=== PATIENT | female | born 1945 | race Caucasian/White ===

== ENCOUNTER 2022-03-25 13:02 | Outpatient (CLI) | payer OTHER, SELFPAY ==
[2022-03-25 17:18] LABS: Albumin* 3.9 g/dL (3.3-5.0); Chloride* 102 mmol/L (96-114); Potassium* 4.9 mmol/L (3.6-5.1); Sodium* 134 mmol/L (135-149)
[2022-03-25 17:21] LABS: Alanine Aminotransferase* 13 U/L (4-35); Alkaline Phosphatase* 108 U/L (40-150); Aspartate Amino Transferase* 23 U/L (12-35); Bilirubin Total* 0.8 mg/dL (0.1-1.5); Blood Urea Nitrogen* 22 mg/dL (7-30); Calcium* 9.3 mg/dL (8.4-10.6); Carbon Dioxide* 26 mmol/L (20-32); Creatinine* 1.3 mg/dL (0.5-1.5); Estimated Glomerular Filt Rate 42 ml/min; Glucose* 116 mg/dL (60-115); Total Protein* 7.4 g/dL (6.0-8.3)
[2022-03-25 17:31] LABS: NT Pro B Type NatriureticPept* 763 PG/mL (0-450)
== END 2022-03-25 13:03 | disposition home or self-care (01) ==
PROVIDERS: PCP Internal Medicine; Visit Provider Student in an Organized Health Care Education/Training Program
DX: R60.0 Localized edema (principal); R06.02 Shortness of breath
CPT/HCPCS: 80053; 83880

== ENCOUNTER 2022-04-28 10:00 | Outpatient (CLI) | payer OTHER, SELFPAY ==
[2022-04-28 15:31] LABS: Chloride* 98 mmol/L (96-114); Sodium* 131 mmol/L (135-149)
[2022-04-28 15:34] LABS: Carbon Dioxide* 24 mmol/L (20-32); Creatinine* 1.5 mg/dL (0.5-1.5); Estimated Glomerular Filt Rate 36 ml/min
[2022-04-28 15:35] LABS: Blood Urea Nitrogen* 24 mg/dL (7-30); Calcium* 9.4 mg/dL (8.4-10.6); Glucose* 163 mg/dL (60-115)
== END 2022-04-28 10:01 | disposition home or self-care (01) ==
LOC: NFLDREF 10:01
PROVIDERS: PCP Internal Medicine; Visit Provider Internal Medicine
DX: R06.09 Other forms of dyspnea (principal); E11.9 Type 2 diabetes mellitus without complications; I10 Essential (primary) hypertension; N18.2 Chronic kidney disease, stage 2 (mild)
CPT/HCPCS: 80048

== ENCOUNTER 2022-05-06 11:09 | Outpatient (CLI) | payer OTHER, SELFPAY ==
--- NOTE | 2022-05-06 11:30 | CRLHL7_ITS ---
For Patients: As a result of the Century Cures Act, medical imaging exams and procedure reports are released immediately into your electronic medical record. You may view this report before your referring provider. If you have questions, please contact your health care provider. BILATERAL SCREENING MAMMOGRAM WITH COMPUTER-AIDED DETECTION TECHNIQUE: CC and MLO views were obtained. These mammographic images have been obtained using full-field digital technique. These mammographic images were interpreted with the benefit of computer-aided detection. COMPARISON FILM: 01/04/21, 12/17/19, 09/10/18. FINDINGS: There are scattered areas of fibroglandular density IMPRESSION: There is no radiographic evidence for malignancy. ASSESSMENT: BI-RADS Category 2: Benign RECOMMENDATION: Routine screening mammogram in 1 year. A lay language report of this examination will be provided to the patient. Geovanny Brady M.D. Diagnostic Radiologist [email or web address] KIERAN/Dictated by: Geovanny Brady MD @ 05/09/2022 9:18:00 AM (Electronically Signed)
== END 2022-05-06 11:10 | disposition home or self-care (01) ==
LOC: MAMMO 11:10
PROVIDERS: PCP Internal Medicine; Visit Provider Internal Medicine
DX: Z12.31 Encounter for screening mammogram for malignant neoplasm of breast (principal)
CPT/HCPCS: 77067

== ENCOUNTER 2022-09-09 09:08 | Outpatient (CLI) | payer OTHER, SELFPAY ==
[2022-09-09 10:00] LABS: Albumin* 3.9 g/dL (3.3-5.0); Chloride* 102 mmol/L (96-114)
[2022-09-09 10:01] LABS: Potassium* 3.7 mmol/L (3.6-5.1); Sodium* 136 mmol/L (135-149)
[2022-09-09 10:03] LABS: Alkaline Phosphatase* 91 U/L (40-150); Aspartate Amino Transferase* 23 U/L (12-35); Bilirubin Total* 0.9 mg/dL (0.1-1.5); Blood Urea Nitrogen* 23 mg/dL (7-30); Carbon Dioxide* 28 mmol/L (20-32); Cholesterol* 149 mg/dL (90-199); Creatinine* 1.6 mg/dL (0.5-1.5); Estimated Glomerular Filt Rate 33 ml/min; Glucose* 135 mg/dL (60-115)
[2022-09-09 10:04] LABS: Alanine Aminotransferase* 17 U/L (4-35); Calcium* 9.1 mg/dL (8.4-10.6); HDL Cholesterol* 49 mg/dL (>=50); LDL Cholesterol Calculated 56 mg/dL (<100); Triglycerides* 218 mg/dL (40-149)
[2022-09-09 10:15] LABS: Creatinine Urine 180.7 mg/dL
[2022-09-09 10:19] LABS: Microalbumin Creatinine Ratio 10 mg/g (0-30); Microalbumin Urine 2 mg/dL
== END 2022-09-09 09:09 | disposition home or self-care (01) ==
LOC: NFLDLAB 09:09
PROVIDERS: PCP Internal Medicine; Visit Provider Internal Medicine
DX: E78.5 Hyperlipidemia, unspecified (principal); E11.9 Type 2 diabetes mellitus without complications; I10 Essential (primary) hypertension; N18.9 Chronic kidney disease, unspecified; E66.01 Morbid (severe) obesity due to excess calories; N18.30 Chronic kidney disease, stage 3 unspecified; Z79.01 Long term (current) use of anticoagulants
CPT/HCPCS: 36415; 80053; 80061; 82043; 82570

== ENCOUNTER 2023-05-15 09:24 | Outpatient (CLI) | payer OTHER, SELFPAY ==
--- NOTE | 2023-05-15 09:45 | CRLHL7_ITS ---
For Patients: As a result of the Century Cures Act, medical imaging exams and procedure reports are released immediately into your electronic medical record. You may view this report before your referring provider. If you have questions, please contact your health care provider. BILATERAL SCREENING MAMMOGRAM WITH COMPUTER-AIDED DETECTION TECHNIQUE: CC and MLO views were obtained. These mammographic images have been obtained using full-field digital technique. These mammographic images were interpreted with the benefit of computer-aided detection. COMPARISON FILM: 05/06/22, 01/04/21, 12/17/19. FINDINGS: There are scattered areas of fibroglandular density IMPRESSION: There is no radiographic evidence for malignancy. ASSESSMENT: BI-RADS Category 2: Benign RECOMMENDATION: Routine screening mammogram in 1 year. A lay language report of this examination will be provided to the patient. BALJINDER TORRES M.D. Diagnostic/Nuclear Medicine Radiologist [email or web address] HEIDI:ani Transcribed: 2:48 p.mDemetria law/Dictated by: Baljinder Torres MD @ 05/16/2023 9:14:00 AM (Electronically Signed)
== END 2023-05-15 09:25 | disposition home or self-care (01) ==
LOC: MAMMO 09:25
PROVIDERS: PCP Internal Medicine; Visit Provider Internal Medicine
DX: Z12.31 Encounter for screening mammogram for malignant neoplasm of breast (principal)
CPT/HCPCS: 77063; 77067

== ENCOUNTER 2023-06-15 09:25 | Outpatient (CLI) | payer OTHER, SELFPAY | END 2023-06-15 09:26 | disposition home or self-care (01) | LOC: NFLDREF 06-23 05:42 | PROVIDERS: PCP Internal Medicine; Referring Provider Internal Medicine; Visit Provider Internal Medicine | DX: E11.9 Type 2 diabetes mellitus without complications (principal); Z79.01 Long term (current) use of anticoagulants; Z95.2 Presence of prosthetic heart valve | CPT/HCPCS: 80053; 82043; 82570 ==

== ENCOUNTER 2023-09-12 09:25 | Outpatient (CLI) | payer OTHER, SELFPAY ==
--- OUTSIDE RECORDS SUMMARY | 2023-09-13 06:12 | XMS_ITS | Encounter Summary ---
Author Name Unknown Organization [facility] Address [address] [place] [address] Care Team Providers Care Roundhouse Worker Name Role Phone Elsewhere, Pcp Primary Care Provider Unavailabl e Reason for Visit * Reason Comments Med Refill Encounter Details Date Type Department Care Team (Late st Contact Info) Description 06/27/2023 Refill Department of Family Medicine, [facility], in [place], [place] [address] [place] [phone] Gilberto Law M.D. [address] [place] [phone] Med Refill Social History Tobacco Use Types Packs/Day Years Used Date Smoking Tobacco: Former Cigarettes 0 Q uit: 1998 Smokeless Tobacco: Never Alcohol Use Standard Drinks/Week Comments Yes 1 (1 standard drink = 0.6 oz pur e alcohol) Occasioanl Nutrition Answer Date Recorded Nutrition: EVOO Fat Source Unknown 09/22 Nutrition: Servings of Fruits/Vegetables per Day Not on file 09/22/2020 Dental Answer Date Recorded Dental: Regular Dentist Unknown 09/22/19 Sex and Gender Information Value Date Recorded Sex Assigned at Not on file Gender Identity Not on file Sexual Orientation Not on file documented as of this encounter Plan of Treatment Not on file documented as of this encounter Visit Diagnoses Diagnosis Atherosclerotic Heart Disease Of [place] Coronary Artery Without Angina Pectoris documented in this encounter Additional Health Concerns Assessment Noted Time PHQ-9 Depression Total Score: 0 10/16/19 13 9:28 PM CDT documented as of this encounter Care Teams Roundhouse Worker Relationship Specialty Start Date End Date Elsewhere, Pcp PCP - General Family Medicine 07/20/17 documented as of this encounter
--- OUTSIDE RECORDS SUMMARY | 2023-09-13 06:12 | XMS_ITS | Referral Summary ---
Author Name Unknown Organization [facility] Address [address] [place] [address] Care Team Providers Care Primer Waterproofing Machine Adjuster Name Role Phone Elsewhere, Pcp Primary Care Provider Unavailabl e Source Comments Patient records contain information from all sites at [facility]. For routine questions regarding patient records, call [phone] during business hours, M-F 8:00 AM - 5:00 PM Central Time. Record requests for emergency care only can be directed to [phone] at any time.[facility] Encounters Date Type Department Care Team Description 07/12/2023 9:15 AM GLASS HANDLER Office Visit Department of Cardiovascular Diseases in [address] [phone] Gilberto Law M.D. Atherosclerotic Heart Disease Of [place] Coronary Artery Without Angina Pectoris (Primary Dx); Shortness Of Breath 06/27/2023 Refill Department of Family Medicine, [facility], in [address] [phone] Gilberto Law M.D. Med Refill 06/14/2023 1:07 PM GLASS HANDLER - 06/14/2023 11:59 PM GLASS HANDLER Hospital Encounter Department of Cardiovascular Diseases in [address] [phone] Gilberto Law M.D. Thoracic Aortic Aneurysm Without Rupture Unspecified (HCC); Atherosclerotic Heart Disease [facility] [place] Coronary Artery Without Angina Pectoris Discharge Disposition: Home or Self Care from Last 3 Months Allergies Active Allergy Reactions Criticality Noted Date Comments Adhesive Tape-Silicones Hives (Reselect Reaction) 01/05/2018 Enoxaparin Rash 10/15/2012 Heparin Hives (Reselect Reaction) 01/05/2018 Latex Hives (Reselect Reaction) 01/05/2018 Medications Medication Sig Dispensed Refills Start Date End Date Status isosorbide mononitrate (IMDUR) 30 mg 24 hr tablet Take 30 mg by mouth daily. 0 Active metoprolol tartrate (LOPRESSOR) 50 mg tablet Take 50 mg by mouth 2 (two) times a day. 0 Active fish oil 1,000 mg capsule Take 1,000 mg by mouth 2 (two) times a day. 0 Active cholecalciferol (VITAMIN D3) 10 mcg (400 Unit) tablet Take 400 Units by mouth daily. 0 Active warfarin (COUMADIN) 5 mg tablet Take 5 mg by mouth. Take as directed per After Visit Summary. 0 Active warfarin (COUMADIN) 7.5 mg tablet Take 7.5 mg by mouth. Take as directed per After Visit Summary. 0 Active ACCU-CHEK COMPACT PLUS TEST strip TEST TWO TIMES A DAY 3 03/26/2019 Active lancets test twice a day 0 10/13/2008 Active nitroglycerin (NITROSTAT) 0.[address] 1 tablet under the tongue as needed. 0 10/16/2012 Active ezetimibe (ZETIA) 10 mg tablet Take 1 tablet (10 mg total) by mouth daily. Additional refills with PCP. 90 tablet 1 12/09/2019 Active losartan (COZAAR) 100 mg tablet Take 100 mg by mouth daily. 0 03/12/2021 Active furosemide (LASIX) 40 mg tablet Take 40 mg by mouth daily. 0 05/04/2022 Active Accu-Chek Guide test strips strips TEST TWO TIMES A DAY 0 05/21/2022 Active amoxicillin (AMOXIL) 500 mg capsule Take 2,000 mg by mouth once. TAKE 4 CAPSULES BY MOUTH 1 HOUR BEFORE DENTAL APPOINTMENT 0 03/02/2022 Active hydroCHLOROthiazide (MICROZIDE) 12.5 mg capsule Take 12.5 mg by mouth daily. 0 03/27/2022 Active metFORMIN XR (GLUCOPHAGE-XR) 500 mg 24 hr tablet TAKE TWO TABLETS BY MOUTH TWICE A DAY 0 03/17/2022 Active Repatha SureClick 140 mg/mL pen injector injectionIndication s:Atherosclerotic Heart Disease Of [place] Coronary Artery Without Angina Pectoris INJECT 1ML UNDER THE SKIN EVERY 14 DAYS 2 mL 11 06/28/2023 Active Active Problems Problem Noted Date Diagnosed Date Hypertensive Heart Disease Without Heart Failure 01/05/2018 Hyperlipidemia 01/05/2018 Shortness Of Breath 01/05/2018 Thoracic Aortic Aneurysm Without Rupture Unspeci fied 01/05/2018 Acquired Aortic Valve Disorder 01/05/2018 Hypertension 11/12/2013 Atherosclerotic Heart Diseas e Of [place] Coronary Artery Without Angina Pectoris 11/12/2013 Diabetes Mellitus Type 2 11/12/2013 Social History Tobacco Use Types Packs/Day Years Used Date Smoking Tobacco: Former Cigarettes 0 Q uit: 1998 Smokeless Tobacco: Never Tobacco Cessation:Counseling Given: Not Answered Alcohol Use Standard Drinks/Week Comments Yes 1 (1 standard drink = 0.6 oz pur e alcohol) Occasioanl Nutrition Answer Date Recorded Nutrition: EVOO Fat Source Unknown 09/22 Nutrition: Servings of Fruits/Vegetables per Day Not on file 09/22/2020 Dental Answer Date Recorded Dental: Regular Dentist Unknown 09/22/19 21 Sex and Gender Information Value Date Recorded Sex Assigned at Not on file Gender Identity Not on file Sexual Orientation Not on file Last Filed Vital Signs Vital Sign Reading Time Taken Comments Blood Pressure 100/62 07/12/2023 9:05 AM GLASS HANDLER Pulse 50 07/12/2023 9:05 AM GLASS HANDLER Temperature 36.2 ??C (97.1 ??F) 12/29/2022 10:30 AM C DT Respiratory Rate 24 05/12/2021 9:25 AM CDT Oxygen Saturation 96% 07/12/2023 9:01 AM GLASS HANDLER room air Inhaled Oxygen Concentration - - Weight 99.8 kg (220 lb 0.3 oz) 07/12/2023 9:01 A M GLASS HANDLER Height 162.3 cm (5' 3.9) 06/01/2022 9:37 AM CDT Body Mass Index 37.89 06/01/2022 9:37 AM CDT Plan of Treatment Not on file Medical Devices Implanted Type Area Roof Tiler Device Identifier Shelf Expiration Date Model / Serial / Lot Vision Stent 3.5 X 28 - [employer] [id number] Implanted:Qty: 1 on 06/17/2011 Cardiac Stent Kitchen Description:Device Manufactu rer - [employer]. Device Status Text - [id number]. Xience Stent 3.5 X 28 - [employer] [id number] Implanted:Qty: 1 on 10/24/2011 Cardiac Stent Kitchen Description:Device Manufactu rer - [employer]. Device Status Text - [id number]. Sofi Xience 2.25 X 15 - Fowler [id number] Implanted:Qty: 1 on 10/16/2012 Cardiac Stent Kitchen Description:Device Manufactu rer - [employer]. Device Status Text - [id number]. Stent Inlay 7fr X 24cm - Fowler [id number] Implanted:Qty: 1 on 11/14/2013 Ureteral Stent C.R.Bard Description:Device Manufactu rer - [employer] Patient Care Division. Device Status Text - [id number]. Procedures Procedure Name Priority Date/Time Associated Diagnosis Comments (TTE) 2D ECHO DOPPLER COLOR Routine 06/14/2023 2:09 PM GLASS HANDLER Thoracic Aortic Aneurysm Without Rupture Unspecified (HCC) Atherosclerotic Heart Disease Of [place] Coronary Artery Without Angina Pectoris from Last 3 Months Results * (TTE) 2D ECHO DOPPLER COLOR (06/14/2023 2:09 PM GLASS HANDLER) Ejection Fraction 63 MC CV EIMS Mid-Ascending Aorta 48 MC CV EIMS LV Mass Index 98 MC CV EIMS LV End-Diastolic Diameter 49 MC CV EIMS LV End-Systolic Diameter 30 MC CV EIMS MV E Velocity 1.2 MC CV EIMS MV A Velocity 1.2 MC CV EIMS MV E/A 1 MC CV EIMS MV e' Velocity Medial 0.04 MC CV EIMS MV e' Velocity Lateral 0.05 MC CV EIMS MV E/e' Medial 30 MC CV EIMS MV E/e' Lateral 24 MC CV EIMS Left ventricular stroke volume index 44 MC CV EIMS Cardiac Output 5.15 MC CV EIMS Cardiac Index 2.53 MC CV EIMS LV Interventricular Septal Wall Thickness 12 MC CV EIMS LV Posterior Wall Thickness 10 MC CV EIMS LV Relative Wall Thickness 41 MC CV EIMS Tricuspid Annular S? 0.11 MC CV EIMS TR Vmax 2.75 MC CV EIMS RA Pressure 5 MC CV EIMS RV Systolic Pressure 35 MC CV EIMS AV mean gradient 20 MC CV EIMS Aortic valve area 1.41 MC CV EIMS Aortic Valve Area Index 0.69 MC CV EIMS Aortic Valve Dimensionless Index 0.41 MC CV EIMS MV mean gradient 3 MC CV EIMS LA Volume Index 40 MC CV EIMS Aortic Valve Systolic Peak Velocity 3 MC CV EIMS Anatomical Region Laterality Modality Echocardiography 06/14/2023 1:09 PM GLASS HANDLER Impressions 06/14/2023 2:55 PM GLASS HANDLER Status post [address] [employer] mechanical aortic valve prosthesis (elsewhere, 27-MAY-1999). LEFT VENTRICLE:Normal left ventricular chamber size. Abnormal left ventricular geometry with ??eccentric left ventricular hypertrophy. Calculated 2-D linear left ventricular ejection fraction 63%. Abnormal ventricular septal motion due to conduction without other regional wall motion abnormalities. Indeterminate left ventricular filling pressure. RIGHT VENTRICLE:Normal right ventricular chamber size. Normal right ventricular systolic function. Estimated right ventricular systolic pressure 35 mmHg (right atrial pressure of 5 mmHg). ATRIA:Mildly enlarged left atrial size. Left atrial volume index 40 ml/m2. Enlarged right atrial size by visual estimate. CARDIAC VALVES:Normal aortic valve mechanical prosthesis. Aortic valve prosthesis systolic mean Doppler gradient 20 mmHg. Aortic valve prosthetic orifice area by Doppler: 1.41 cm2 Trivial (normal washing jets) aortic valve prosthetic regurgitation. No aortic valve periprosthetic regurgitation. Mildly thickened mitral valve. Severely calcified mitral annulus. Mitral valve diastolic mean Doppler gradient 3 mmHg (heart rate 56 BPM). Mild mitral valve regurgitation. Normal pulmonary valve. Normal pulmonary valve systolic velocities. Trivial pulmonary valve regurgitation. Normal tricuspid valve. Mild tricuspid valve regurgitation. OTHER ECHO FINDINGS:Normal inferior vena cava size with normal inspiratory collapse (>50%). Moderate-severely enlarged mid ascending aorta diameter of 48 mm. Upper limit of normal of the mid ascending aorta, for age, sex and BSA is 40 mm. Abdominal aorta incompletely visualized. Normal abdominal aorta Doppler flow pattern. Lipomatous atrial septum. No atrial level shunt by color flow imaging. No intracardiac mass or thrombus, but the left atrial appendage cannot be visualized adequately with transthoracic echo to exclude thrombus in this location. No ??pericardial effusion. For the complete report, see the Order-Level Documents. Narrative 06/14/2023 2:55 PM GLASS HANDLER For the complete report, see the Order-Level Documents. Hemodynamics Heart Rate: 57 BPM Blood Pressure: 124 / 67 mmHg ECG: Sinus rhythm Final Impressions 1. Status post [address] [place] mechanical aortic valve prosthesis (elsewhere, 27-MAY-1999). 2. Normal aortic valve mechanical prosthesis, prosthesis systolic mean Doppler gradient 20 mmHg, orifice area by Doppler:1.41 cm2 , AT = 79 msec. Trivial prosthetic with no periprosthetic regurgitation. 3. Moderate-severely enlarged mid ascending aorta diameter of 48 mm, upper limit of normal for age, sex and BSA is 40 mm. 4. Normal left ventricular chamber size, calculated 2-D linear ejection fraction 63%. 5. Abnormal ventricular septal motion due to conduction without other regional wall motion abnormalities. 6. Abnormal left ventricular geometry with ??eccentric left ventricular hypertrophy, indeterminate filling pressure. 7. Normal right ventricular chamber size, normal systolic function, estimated right ventricular systolic pressure 35 mmHg (right atrial pressure of 5 mmHg). 8. Severely calcified mitral annulus. Diastolic mean Doppler gradient 3 mmHg (HR 56 beats per minute). ??Mild mitral regurgitation. 9. No ??pericardial effusion. 10. Compared to the report of 05/25/2022 the following changes have occurred: the right ventricular systolic pressure is mildly increase. ??Side by side comparison of images performed. Procedure Note Gilberto Law M.D. - 06/14/2023 For the complete report, see the Order-Level Documents. Hemodynamics Heart Rate: 57 BPM Blood Pressure: 124 / 67 mmHg ECG: Sinus rhythm Final Impressions 1. Status post [address] [place] mechanical aortic valve prosthesis(elsewhere, 27-MAY-1999). 2. Normal aortic valve mechanical prosthesis, prosthesis systolic meanDoppler gradient 20 mmHg, orifice area by Doppler:1.41 cm2 , AT = 79 msec.Trivial prosthetic with no periprosthetic regurgitation. 3. Moderate-severely enlarged mid ascending aorta diameter of 48 mm, upperlimit of normal for age, sex and BSA is 40 mm. 4. Normal left ventricular chamber size, calculated 2-D linear ejectionfraction 63%. 5. Abnormal ventricular septal motion due to conduction without otherregional wall motion abnormalities. 6. Abnormal left ventricular geometry with eccentric left ventricularhypertrophy, indeterminate filling pressure. 7. Normal right ventricular chamber size, normal systolic function,estimated right ventricular systolic pressure 35 mmHg (right atrialpressure of 5 mmHg). 8. Severely calcified mitral annulus. Diastolic mean Doppler gradient 3mmHg (HR 56 beats per minute). Mild mitral regurgitation. 9. No pericardial effusion. 10. Compared to the report of 05/25/2022 the following changes haveoccurred: the right ventricular systolic pressure is mildly increase.Side by side comparison of images performed. Findings Status post [address] [place] mechanical aortic valve prosthesis (elsewhere,27-MAY-1999). LEFT VENTRICLE:Normal left ventricular chamber size. Abnormal leftventricular geometry with eccentric left ventricular hypertrophy.Calculated 2-D linear left ventricular ejection fraction 63%. Abnormalventricular septal motion due to conduction without other regional wallmotion abnormalities. Indeterminate left ventricular filling pressure. RIGHT VENTRICLE:Normal right ventricular chamber size. Normal rightventricular systolic function. Estimated right ventricular systolicpressure 35 mmHg (right atrial pressure of 5 mmHg). ATRIA:Mildly enlarged left atrial size. Left atrial volume index 40 ml/m2.Enlarged right atrial size by visual estimate. CARDIAC VALVES:Normal aortic valve mechanical prosthesis. Aortic valveprosthesis systolic mean Doppler gradient 20 mmHg. Aortic valve prostheticorifice area by Doppler: 1.41 cm2 Trivial (normal washing jets) aorticvalve prosthetic regurgitation. No aortic valve periprostheticregurgitation. Mildly thickened mitral valve. Severely calcified mitralannulus. Mitral valve diastolic mean Doppler gradient 3 mmHg (heart rate56 BPM). Mild mitral valve regurgitation. Normal pulmonary valve. Normalpulmonary valve systolic velocities. Trivial pulmonary valveregurgitation. Normal tricuspid valve. Mild tricuspid valveregurgitation. OTHER ECHO FINDINGS:Normal inferior vena cava size with normal inspiratorycollapse (>50%). Moderate-severely enlarged mid ascending aorta diameterof 48 mm. Upper limit of normal of the mid ascending aorta, for age, sexand BSA is 40 mm. Abdominal aorta incompletely visualized. Normalabdominal aorta Doppler flow pattern. Lipomatous atrial septum. No atriallevel shunt by color flow imaging. No intracardiac mass or thrombus, butthe left atrial appendage cannot be visualized adequately withtransthoracic echo to exclude thrombus in this location. No pericardialeffusion. For the complete report, see the Order-Level Documents. Gilberto Law M.D. CV ECHO PROCEDURES from Last 3 Months Care Teams Primer Waterproofing Machine Adjuster Relationship Specialty Start Date End Date Elsewhere, Pcp PCP - General Family Medicine 07/20/17
--- OUTSIDE RECORDS SUMMARY | 2023-09-13 06:12 | XMS_ITS | Encounter Summary ---
Author Name Unknown Organization [facility] Address [address] [place] [address] Care Team Providers Care Pension Administrator Name Role Phone Elsewhere, Pcp Primary Care Provider Unavailabl e Encounter Details Date Type Department Care Team (Latest Contact Info) Description 11/18/2022 10:03 AM CDT - 11/18/2022 11:59 PM CDT Hospital Encounter Department of Laboratory Medicine in [place], [place] [address] [place] [phone] Gilberto Law M.D. [address] [place] [phone] Shortness Of Breath Discharge Disposition: Home or Self Care Social History Tobacco Use Types Packs/Day Years [...] on file documented as of this encounter Medications at Time of Discharge Medication Sig Dispensed Refills Start Date End Date ACCU-CHEK COMPACT PLUS TEST strip TEST TWO TIMES A DAY 3 03/26/2019 Accu-Chek Guide test strips strips TEST TWO TIMES A DAY 0 05/21/2022 amoxicillin (AMOXIL) 500 mg capsule Take 2,000 mg by mouth once. TAKE 4 CAPSULES BY MOUTH 1 HOUR BEFORE DENTAL APPOINTMENT 0 03/02/2022 cholecalciferol (VITAMIN D3) 10 mcg (400 Unit) tablet Take 400 Units by mouth daily. 0 ezetimibe (ZETIA) 10 mg tablet Take 1 tablet (10 mg total) by mouth daily. Additional refills with PCP. 90 tablet 1 12/09/2019 fish oil 1,000 mg capsule Take 1,000 mg by mouth 2 (two) times a day. 0 furosemide (LASIX) 40 mg tablet Take 40 mg by mouth daily. 0 05/04/2022 hydroCHLOROthiazide (MICROZIDE) 12.5 mg capsule Take 12.5 mg by mouth daily. 0 03/27/2022 isosorbide mononitrate (IMDUR) 30 mg 24 hr tablet Take 30 mg by mouth daily. 0 lancets test twice a day 0 10/13/2008 losartan (COZAAR) 100 mg tablet Take 100 mg by mouth daily. 0 03/12/2021 metFORMIN XR (GLUCOPHAGE-XR) 500 mg 24 hr tablet TAKE TWO TABLETS BY MOUTH TWICE A DAY 0 03/17/2022 metoprolol tartrate (LOPRESSOR) 50 mg tablet Take 50 mg by mouth 2 (two) times a day. 0 nitroglycerin (NITROSTAT) 0.[address] 1 tablet under the tongue as needed. 0 10/16/2012 warfarin (COUMADIN) 5 mg tablet Take 5 mg by mouth. Take as directed per After Visit Summary. 0 warfarin (COUMADIN) 7.5 mg tablet Take 7.5 mg by mouth. Take as directed per After Visit Summary. 0 evolocumab (REPATHA SURESAURAVICK) 140 mg/mL pen injector injectionIndications:A therosclerotic Heart Disease Of [place] Coronary Artery Without Angina Pectoris Inject 1 mL (140 mg total) under the skin every 14 (fourteen) days. 2 mL 11 06/09/2022 06/28/2023 documented as of this encounter Plan of Treatment Not on file documented as of this encounter Procedures Procedure Name Priority Date/Time Associated Diagnosis Comments CBC WITHOUT DIFFERENTIAL, B Routine 11/18/2022 10:32 AM CDT Shortness Of Breath NT-PRO B-TYPE NATRIURETIC PEPTIDE (BNP), S Routine 11/18/2022 10:31 AM CDT Shortness Of Breath SODIUM, S/P Routine 11/18/2022 10:31 AM CDT Shortness Of Breath POTASSIUM, S/P Routine 11/18/2022 10:31 AM CDT Shortness Of Breath CREATININE WITH EGFR, S/P Routine 11/18/2022 10:31 AM CDT Shortness Of Breath documented in this encounter Results * (ABNORMAL) CBC without Differential (11/18/2022 10:32 AM CDT) Hemoglobin 11.8 11.6 - 15.0 g/dL 11/18/2022 11:06 AM CDT FB60 Hematocrit 36.1 35.5 - 44.9 % 11/18/2022 11:06 AM CDT FB60 Erythrocytes 3.79(L) 3.92 - 5.13 x10(12)/L 11/18/2022 11:06 AM CDT FB60 MCV 95.3 78.2 - 97.9 fL 11/18/2022 11:06 AM CDT FB60 RBC Distrib Width 13.7 12.2 - 16.1 % 11/18/2022 11:06 AM CDT FB60 Platelet Count 277 157 - 371 x10(9)/L 11/18/2022 11:06 AM CDT FB60 Leukocytes 9.0 3.4 - 9.6 x10(9)/L 11/18/2022 11:06 AM CDT FB60 Blood (Blood, Venous) 11/18/2022 10:32 AM CDT 11/18/2022 10:32 AM CDT Gilberto Law M.D. LAB BLOOD ADD-ON [facility] [address] [place] [address], [place] FB60 [facility] in [place] [address] [place] [address] * (ABNORMAL) Creatinine with Estimated GFR (11/18/2022 10:31 AM CDT) Creatinine 1.71(H) 0.59 - 1.04 mg/dL 11/18/2022 1:29 PM CDT OWAT Estimated GFR (eGFR) 30(L) >=60 mL/min/BSA 11/18/2022 1:29 PM CDT OWAT Comment: Estimated GFR calculated using the 2020 CKD_EPI creatinine equation. Blood (Blood, Venous) 11/18/2022 10:31 AM CDT 11/18/2022 12:58 PM CDT Gilberto Law M.D. LAB BLOOD ADD-ON Performing Organization Address City/[facility]/ZIP Co de Phone Number [facility] [address] [place] [id number], [facility] OWAT [facility] [place] [address] [place] [phone] * Potassium (11/18/2022 10:31 AM CDT) Potassium, P 4.6 3.6 - 5.2 mmol/L 11/18/2022 1:29 PM CDT OWAT Blood (Blood, Venous) 11/18/2022 10:31 AM CDT 11/18/2022 12:58 PM CDT Gilberto Law M.D. LAB BLOOD ADD-ON [facility] [address], [place] [address], [facility] OWAT [facility] [place] [address] [place] [address] * Sodium (11/18/2022 10:31 AM CDT) Sodium, P 139 135 - 145 mmol/L 11/18/2022 1:29 PM CDT OWAT Blood (Blood, Venous) 11/18/2022 10:31 AM CDT 11/18/2022 12:58 PM CDT Gilberto Law M.D. LAB BLOOD ADD-ON [facility] [address] [place] [address], [facility] [place] [address] [place] [address] * NT-Pro B-Type Natriuretic Peptide (BNP) (11/18/2022 10:31 AM CDT) NT-Pro BNP 462 <=540 pg/mL 11/18/2022 1:[address] [facility] Comment: NT-proBNP values less than 300 pg/mL have a 99% negative predictive value for excluding acute congestive heart failure. A cutoff of 1200 pg/mL for patients with an eGFR<60 yields a diagnostic sensitivity and specificity of 89% and 72% for acute congestive heart failure. A diagnostic NT-proBNP cutoff of 1800 pg/mL has been suggested in adults over 75 years of age in the absence of renal failure. Blood (Blood, Venous) 11/18/2022 10:31 AM CDT 11/18/2022 12:58 PM CDT Gilberto Law M.D. LAB BLOOD ADD-ON [facility] [address] [place] [address], [facility] [place] [address] [place] [address] documented in this encounter Visit Diagnoses Diagnosis Shortness Of Breath documented in this encounter Additional Health Concerns Assessment Noted Time PHQ-9 Depression Total Score: 0 10/16/19 13 9:28 PM CDT documented as of this encounter Care Teams Pension Administrator Relationship Specialty Start Date End Date Elsewhere, Pcp PCP - General Family Medicine 07/20/17 documented as of this encounter
--- OUTSIDE RECORDS SUMMARY | 2023-09-13 06:12 | XMS_ITS | Encounter Summary ---
Author Name Unknown Organization [facility] Address [address] [place] [address] Care Team Providers Care Dowel Machine Operator Name Role Phone Elsewhere, Pcp Primary Care Provider Unavailabl e Encounter Details Date Type Department Care Team (Latest Contact Info) Description 10/19/2022 9:21 AM CDT - 10/19/2022 11:59 PM CDT Hospital Encounter Department of Laboratory Medicine in [place], [place] [address] [place] [phone] Gilberto Law M.D. [address] [place] [phone] Shortness Of Breath Discharge Disposition: Home or [...] pen injector injectionIndications:A therosclerotic Heart Disease Of [place] Coronary Artery Without Angina Pectoris Inject 1 mL (140 mg total) under the skin every 14 (fourteen) days. 2 mL 11 06/09/2022 06/28/2023 documented as of this encounter Plan of Treatment Not on file documented as of this encounter Procedures Procedure Name Priority Date/Time Associated Diagnosis Comments SODIUM, S/P Routine 10/19/2022 9:31 AM CDT Shortness Of Breath POTASSIUM, S/P Routine 10/19/2022 9:31 AM CDT Shortness Of Breath CREATININE WITH EGFR, S/P Routine 10/19/2022 9:31 AM CDT Shortness Of Breath documented in this encounter Results * (ABNORMAL) Creatinine with Estimated GFR (10/19/2022 9:31 AM CDT) Creatinine 1.80(H) 0.59 - 1.04 mg/dL 10/19/2022 11:41 AM CDT OWAT Estimated GFR (eGFR) 29(L) >=60 mL/min/BSA 10/19/2022 11:41 AM CDT OWAT Comment: Estimated GFR calculated using the 2020 CKD_EPI creatinine equation. Blood (Blood, Venous) 10/19/2022 9:31 AM CDT 10/19/2022 11:08 AM CDT Gilberto Law M.D. LAB BLOOD ADD-ON Performing Organization Address City/[facility]/ZIP Co de Phone Number [facility] [address] [place] [address], [facility] OWAT [facility] in [place] [address], [place] [address] * Potassium (10/19/2022 9:31 AM CDT) Potassium, P 4.9 3.6 - 5.2 mmol/L 10/19/2022 11:41 AM CDT OWAT Blood (Blood, Venous) 10/19/2022 9:31 AM CDT 10/19/2022 11:08 AM CDT Gilberto Law M.D. LAB BLOOD ADD-ON [facility] [address] [place] [address], [facility] OW[address] [facility] in [place] [address] [place] [address] * Sodium (10/19/2022 9:31 AM CDT) Sodium, P 135 135 - 145 mmol/L 10/19/2022 11:41 AM CDT OWAT Blood (Blood, Venous) 10/19/2022 9:31 AM CDT 10/19/2022 11:08 AM CDT Gilberto Law M.D. LAB BLOOD ADD-ON [facility] [address] [place] [address], [facility] OWAT [facility] [place] [address] [place] [address] documented in this encounter Visit Diagnoses Diagnosis Shortness Of Breath documented in this encounter Additional Health Concerns Assessment Noted Time PHQ-9 Depression Total Score: 0 10/16/19 13 9:28 PM CDT documented as of this encounter Care Teams Dowel Machine Operator Relationship Specialty Start Date End Date Elsewhere, Pcp PCP - General Family Medicine 07/20/17 documented as of this encounter
--- OUTSIDE RECORDS SUMMARY | 2023-09-13 06:12 | XMS_ITS | Clinical Summary ---
Author Name Unknown Organization [facility] Address [address] [place] [address] Care Team Providers Care Physical Testing Supervisor Name Role Phone Elsewhere, Pcp Primary Care Provider Unavailabl e Source Comments Patient records contain information from all sites at [facility]. For routine questions regarding patient records, call [phone] during business hours, M-F 8:00 AM - 5:00 PM Central Time. Record requests for emergency care only can be directed to [phone] at any time.[facility] Allergies Active Allergy Reactions Criticality Noted Date [...] pen injector injectionIndication s:Atherosclerotic Heart Disease Of [place] Coronary Artery Without Angina Pectoris INJECT 1ML UNDER THE SKIN EVERY 14 DAYS 2 mL 11 06/28/2023 Active Active Problems Problem Noted Date Diagnosed Date Hypertensive Heart Disease Without Heart Failure 01/05/2018 Hyperlipidemia 01/05/2018 Shortness Of Breath 01/05/2018 Thoracic Aortic Aneurysm Without Rupture Unspeci fied 01/05/2018 Acquired Aortic Valve Disorder 01/05/2018 Hypertension 11/12/2013 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 Atherosclerotic Heart Disease Of [place] Coronary Artery Without Angina Pectoris (Primary Dx); Shortness Of Breath 06/27/2023 Refill Department of Family Medicine, [facility], in [place], [place] [address] [place] [phone] Gilberto Law M.D. Med Refill 06/14/2023 1:07 PM CISO - 06/14/2023 11:59 PM CISO Hospital Encounter Department of Cardiovascular Diseases in [place] [address] [place] [address] Gilberto Law M.D. Thoracic Aortic Aneurysm Without Rupture Unspecified (HCC); Atherosclerotic Heart Disease Of [place] Coronary Artery Without Angina Pectoris Discharge Disposition: Home or Self Care from Last 3 Months Social History Tobacco Use Types Packs/Day Years [...] Comments Blood Pressure 100/62 07/12/2023 9:05 AM CISO Pulse 50 07/12/2023 9:05 AM CISO Temperature 36.2 ??C (97.1 ??F) 12/29/2022 10:30 AM C DT Respiratory Rate 24 05/12/2021 9:25 AM CDT Oxygen Saturation 96% 07/12/2023 9:01 AM CISO room air Inhaled Oxygen Concentration - - Weight 99.8 kg (220 lb 0.3 oz) 07/12/2023 9:01 A M CISO Height 162.3 cm (5' 3.9) 06/01/2022 9:37 AM CDT Body Mass Index 37.89 06/01/2022 9:37 AM CDT Plan of Treatment Health Maintenance Due Date Last Done Comments Diabetic Office Visit with F oot Exam 1945 Dilated Eye Exam 1945 Hepatitis C Screening 1945 Urine Albumin 1945 Hepatitis B Vaccines (1 of 3 - Risk 3-dose series) 2004 Zoster Vaccines (2 of 3) 04/27/2015 03/02/2015 Hemoglobin A1C 11/26/2019 05/27/2019, 10/20/2011 COVID-19 Vaccine (4 2022-2 4 season) 2023 05/06/2021, 10/16/2020, 09/24/2020 Depression Screening (Annual PHQ-2) 07/31/2023 Fall Risk Screen (Annual) 07/31/2023 Creatinine Level (Kidney Fun ction Test) 11/19/2023 11/18/2022, 10/19/2022, 08/04/2022, Additional history exists Potassium Level 11/19/2023 11/18/2022, 09/29, 08/04/2022, Additional history exists Sodium Level 11/19/2023 11/18/2022, 09/29, 08/04/2022, Additional history exists Office Visit for Blood Press ure Check / Re-check 07/12/2024 07/12/2023 DTaP,Tdap,and Td Vaccines (5 - Td or Tdap) 05/29/2029 05/29/2019, 06/30/2008, 04/07/2004, Additional history exists Pneumococcal vaccine (65+ years) Completed 10/29/19 15, 04/20/2010 Influenza Vaccine Completed 06/20/2023, , 06/11/2020, Additional history exists Medical Devices Implanted Type Area Administrative Office Assistant Device Identifier Shelf Expiration Date Model / Serial / Lot Vision Stent 3.5 X 28 - [employer] [id number] Implanted:Qty: 1 on 06/17/2011 Cardiac Stent Kitchen Description:Device Manufactu rer - [employer]. Device Status Text - [id number]. Xience Stent 3.5 X 28 - [employer] [id number] Implanted:Qty: 1 on 10/24/2011 Cardiac Stent Kitchen Description:Device Manufactu rer - [employer]. Device Status Text - [id number]. Sofi Xience 2.25 X 15 - Fowler [id number] Implanted:Qty: 1 on 10/16/2012 Cardiac Stent Kitchen Description:Device Manufactu rer - [employer]. Device Status Text - [id number]. Stent Inlay 7fr X 24cm - Fowler [id number] Implanted:Qty: 1 on 11/14/2013 Ureteral Stent [employer].Bard Description:Device Manufactu rer - [employer] Patient Care Division. Device Status Text - [id number]. Procedures Procedure Name Priority Date/Time Associated Diagnosis Comments (TTE) 2D ECHO DOPPLER COLOR Routine 06/14/2023 2:09 PM CISO Thoracic Aortic Aneurysm Without Rupture Unspecified (HCC) Atherosclerotic Heart Disease Of [place] Coronary Artery Without Angina Pectoris from Last 3 Months Results * (TTE) 2D ECHO DOPPLER COLOR (06/14/2023 2:09 PM CISO) Ejection Fraction 63 MC CV EIMS Mid-Ascending [...] Region Laterality Modality Echocardiography 06/14/2023 1:09 PM CISO Impressions 06/14/2023 2:55 PM CISO Status post [address] [place] mechanical [...] the Order-Level Documents. Narrative 06/14/2023 2:55 PM CISO For the complete report, see the Order-Level [...] PROCEDURES from Last 3 Months Care Teams Physical Testing Supervisor Relationship Specialty Start Date End Date Elsewhere, Pcp PCP - General Family Medicine 07/20/17
--- OUTSIDE RECORDS SUMMARY | 2023-09-13 06:12 | XMS_ITS | Encounter Summary ---
Author Name Unknown Organization [facility] Address [address] [place] [address] Care Team Providers Care Circular Sawyer Stone Name Role Phone Elsewhere, Pcp Primary Care Provider Unavailabl e Reason for Referral * Outpatient (Routine) - Authorized Specialty Diagnoses / Procedures Referred By Contac t Referred To Contact Cardiovascular Disease Gilberto Law M.D. [address] [place] [address] [facility] Region Referral ID Status Reason Start Date Expiration Date V isits Requested Visits Authorized [id number] Authorized 07/12/2023 07/11/2026 1 1 NG SETTER * Cardiovascular-Diagnostic (Routine) - Authorized Specialty Diagnoses / Procedures Referred By Contac t Referred To Contact Diagnoses Shortness Of Breath Procedures Echo Transthoracic (TTE) Gilberto Law M.D. [address] [place] [address] [facility] Region Referral ID Status Reason Start Date Expiration Date V isits Requested Visits Authorized [id number] Authorized 07/12/2023 07/11/2024 1 1 NG SETTER * Outpatient (Routine) - Authorized Specialty Diagnoses / Procedures Referred By Contac t Referred To Contact Diagnoses Shortness Of Breath Procedures ECG 12 Lead Gilberto Law M.D. [address] [place] [address] [facility] Region Referral ID Status Reason Start Date Expiration Date V isits Requested Visits Authorized [id number] Authorized 07/12/2023 07/11/2024 1 1 NG SETTER Reason for Visit * Reason Comments Follow-up * Outpatient (Routine) - Closed Specialty Diagnoses / Procedures Referred By Maura casey Referred To Contact Cardiovascular Disease Gilberto Law M.D. [address] [place] [address] [facility] Region Referral ID Status Reason Start Date Expiration Date Visits Re quested Visits Authorized [id number] Closed 12/29/2022 12/28/2025 1 1 Encounter Details Date Type Department Care Team (Latest Contact Info) Description 07/12/2023 9:15 AM PILING SETTER Office Visit Department of Cardiovascular Diseases in [place], [place] [address] [place] [address] Gilberto Law M.D. [address] [place] [address] Atherosclerotic Heart Disease Of [place] Coronary Artery Without Angina Pectoris (Primary Dx); Shortness Of Breath Social History Tobacco Use Types Packs/Day Years [...] on file documented as of this encounter Last Filed Vital Signs Vital Sign Reading Time Taken Comments Blood Pressure 100/62 07/12/2023 9:05 AM PILING SETTER Pulse 50 07/12/2023 9:05 AM PILING SETTER Temperature - - Respiratory Rate - - Oxygen Saturation 96% 07/12/2023 9:01 AM PILING SETTER room air Inhaled Oxygen Concentration - - Weight 99.8 kg (220 lb 0.3 oz) 07/12/2023 9:01 A M PILING SETTER Height - - Body Mass Index 37.89 06/01/2022 9:37 AM CDT documented in this encounter Progress Notes * Gilberto Law M.D. - 07/12/2023 9:15 AM CST ASSESSMENT / PLAN Coronary artery disease CABG x2 at [facility] in [place] on 1998. PCI BMS LM and pLCx 06/17/2011 PCI SHAKILA LM and Cx for ISR 10/24/2011 PCI SHAKILA mLAD and PTCA LM-LCx ISR 10/16/2012 Heart failure preserved systolic function Pulmonary hypertension, group 2 +/-3 Aortic valve replacement #21 mm [place] 1998 Long-term anticoagulation, Warfarin. Managed by [facility]. Hypertension with possible white coat component Seen by Nephrology for resistant hypertension, last appointment 10/2016 Hyperlipidemia. Myalgia with statins, discontinued rosuvastatin 11/2018 (unable to tolerate even a weekly dose) Ascending aortic aneurysm Moderate?severe ascending aorta dilatation (48 mm at mid level) 05/2023-04/2022, 49 04/2021, 48 03/2020-04/2015. Based on [facility] records from 06/2007 aorta was 50 mm. No AAA on US 04/2020 Diabetes mellitus type 2 Obesity, BMI 37.9 Obstructive sleep apnea, untreated Nephrolithiasis History of lung nodule Prior history of tobacco use, quit . Heart failure with preserved systolic function. Stable to slightly worsening dyspnea on exertion but no significant lower extremity edema. Unfortunately, unable to more aggressively diurese the patient due to worsening renal function (latest outside creatinine was 1.7, eGFR 31). Euvolemic on exam. No hyponatremia based on latest labs. Echo is stable but for mildly increasing the right ventricularsystolic pressure (suggestive of group 2 pulmonary hypertension). She is aware of the importance oflow-sodium diet. We believe that in the setting of heart failure with preserved systolic function, the patient is a candidate for an SGLT-2 inhibitor. In the setting of diabetes, we would prefer thatthat is initiated by her primary care provider. A copy of this note will be sent to her (through [employer] and [employer]). If that is initiated, her diuretic dosage should be halved and repeat renal function performed to monitor. We also explained to the patient and her that heart failure with preserved systolic function symptoms can not be solely ameliorated by using heart failure medications. The symptoms are also secondary to aging, deconditioning, obesity, untreated sleep apnea, pulmonary andmusculoskeletal issues. In view of that, a more holistic approach is needed. We previously offered the patient to meet with an doll dresser in [place] but she was not interested. Today we offered evaluation by sleep medicine in [place] as untreated sleep apnea could be contributing topulmonary hypertension (group 3). She politely declined. It is likely that obesity is contributing.In view of that, weight loss was recommended. The patient could review the possibly of the use of GLP 1 receptor agonists to help with that. Coronary artery disease/dyspnea on exertion. See above. Her pulmonary artery pressures are increase, see recommendations in regards to management above. Her current symptoms are unlikely ischemic in nature but, in case of further increase, particularly if more limiting to the patient, repeat ischemic assessment will be performed as discussed. She agrees to call us if that occurs. Hypertension is well controlled, in fact, blood pressures are soft in the office today. If symptomatic hypotension, may lower her dosage of losartan. She is undergoing antilipemic therapy with ezetimibe and PCSK9 inhibitors (started around May 2022). We have asked the patient to retrieve labs with her primary care provider for our review, next follow-up appointment. If recent lipids are not available, we will consider during the in the office. Diabetes mellitus is well controlled by the patient's primary care provider. Aortic valve replacement, [place] #21 per notes/ascending aortic aneurysm. Stable auscultation and echocardiographic findings. Continue lifelong warfarin anticoagulation and antibiotic prophylaxis, managed by [facility]. No bleeding issues report. We will continue monitoring with yearly echocardiograms. If further dilatation is seen, she will need dedicated cross-sectional imaging of the aorta. Adequate blood pressure control on beta-valerie and ARB should help prevent progression. Improved lipids could help as well. No abdominal aortic aneurysm on ultrasound 04/2020. PLAN: #1 Atherosclerotic Heart Disease Of [place] Coronary Artery Without Angina Pectoris #2 Shortness Of Breath - ECG 12 Lead; Future; Expected date: 07/12/2024 (Before next visit) - Echo Transthoracic (TTE); Future; Expected date: 07/12/2024 (Before next visit) Other orders - Cardiovascular Disease office visit (clinic) General - Cardiovascular Disease office visit (clinic) General; Future; Expected date: 07/12/2024 There are no discontinued medications. - Follow up with Cardiology in twelve months or call us sooner in case of problems or concerns. The patient expressed understanding of the information discussed during the visit today and agreement with the plan. CARDIOLOGY SUBSEQUENT VISIT Location: [facility] SUBJECTIVE CHIEF COMPLAINT / REASON FOR VISIT Office follow-up. HISTORY OF PRESENT ILLNESS Ms. Demi Tolliver is a very pleasant 77 y.o. female who presents to [facility] for follow-up. Her primary care provider is ELSEWHERE, PCP (Dr. Remedios Velazquez). Last seen by me on December 2022. Presenting with her . I had the pleasure of seeing Ms. Demi Tolliver in clinic today. The patient presents today stating she is doing overall well but shortness of breath may be stable to slightly worse than during lastvisit. No significant lower extremity edema (some leg edema reported during summertime). Compliant with medications without significant side effects. Not on aspirin. Monitoring anticoagulation regularly. Home blood pressures have been around 100-117 millimeter of mercury for the systolic readings without significant lightheadedness or loss of consciousness associated. She was seen by primary careprovider May labs brought to our attention. Those will be sent to be scanned into the chart. The patient is a past smoker having quit 1989. Sedentary lifestyle. She drinks 1 alcoholic beveragea week. Three caffeinated beverages a day. No illicit drug use. PERTINENT CARDIAC (OR RELATED) STUDIES REVIEWED: Echocardiogram May 2023: 1. Status post [address] mechanical aortic valve prosthesis (elsewhere, -APR-1999). 2. Normal aortic valve mechanical prosthesis, prosthesis systolic mean Doppler gradient 20 mmHg, orifice area by Doppler:1.41 cm2 , AT = 79 msec. Trivial prosthetic with no periprosthetic regurgitation. 3. Moderate-severely enlarged mid ascending aorta diameter of 48 mm, upper limit of normal for age,sex and BSA is 40 mm. 4. Normal left ventricular chamber size, calculated 2-D linear ejection fraction 63%. 5. Abnormal ventricular septal motion due to conduction without other regional wall motion abnormalities. 6. Abnormal left ventricular geometry with eccentric left ventricular hypertrophy, indeterminate filling pressure. 7. Normal right ventricular chamber size, normal systolic function, estimated right ventricular systolic pressure 35 mmHg (right atrial pressure of 5 mmHg). 8. Severely calcified mitral annulus. Diastolic mean Doppler gradient 3 mmHg (HR 56 beats per minute). Mild mitral regurgitation. 9. No pericardial effusion. 10. Compared to the report of 05/25/2022 the following changes have occurred: the right ventricularsystolic pressure is mildly increase. Side by side comparison of images performed. Echocardiogram April 2022: 1. Transthoracic outreach echo interpretation. 2. Status post [address] [place] mechanical aortic valve prosthesis (elsewhere, 27-MAY-1999). 3. Aortic valve prosthesis systolic mean Doppler gradient 19 mmHg; acceleration time less than 100 msec. Trivial prosthetic regurgitation. No periprosthetic regurgitation. 4. Enlarged mid ascending aorta diameter of 48 mm (upper limit of normal for age and BSA 40 mm.). 5. Normal left ventricular chamber size, no regional wall motion abnormalities, calculated 2-D linear ejection fraction 65%. 6. Normal right ventricular chamber size, normal systolic function, estimated right ventricular systolic pressure 28 mmHg (right atrial pressure of 5 mmHg). 7. Severely calcified mitral annulus. Diastolic mean Doppler gradient 2 mmHg (HR 56 BPM). Mild mitral regurgitation. 8. No pericardial effusion. 9. Compared to the report of 05/05/2021 the following changes have occurred: decreased right ventricular systolic pressure. Side by side comparison of images performed. Echocardiogram April 2021: 1. Enlarged mid ascending aorta diameter (diameter 49 mm at mid level) (upper limits of normal 41 mm). 2. Status post [address] [place] mechanical aortic valve prosthesis (elsewhere, 27-MAY-1999). 3. Aortic valve prosthesis systolic mean Doppler gradient 21 mmHg. Trivial prosthetic with no periprosthetic regurgitation. 4. Normal left ventricular chamber size, no regional wall motion abnormalities, calculated 2-D linear ejection fraction 57 %. 5. Abnormal left ventricular geometry with concentric left ventricular hypertrophy, indeterminate filling pressure. 6. Normal right ventricular chamber size, normal systolic function, estimated right ventricular systolic pressure 36 mmHg (right atrial pressure of 5 mmHg). 7. Moderately calcified mitral annulus. Diastolic mean Doppler gradient 2 mmHg (heart rate 55 BPM).Mild mitral regurgitation. 8. No pericardial effusion. 9. Compared to the report of 04/22/2020 the following changes have occurred: decreased right ventricular systolic pressure; abdominal aorta was not well visualized in the current study. Side by side comparison of images performed. Echocardiogram March 2020: 1. Moderate-severely enlarged mid ascending aorta diameter (diameter 48 mm at mid level). 2. Status post [address] prosthesis (elsewhere, 1998). 3. Aortic valve prosthesis systolic mean Doppler gradient 20 mmHg. Trivial prosthetic and no periprosthetic regurgitation. 4. Normal left ventricular chamber size. Calculated ejection fraction 61%. No regional wall motion abnormalities. 5. Mildly enlarged right ventricular chamber size by visual estimate (limited visualization). Normal systolic function. 6. Estimated right ventricular systolic pressure 44 mmHg (systolic blood pressure 142 mmHg). 7. Moderately calcified mitral annulus. Diastolic mean Doppler gradient 3 mmHg (HR 55 BPM). Mild mitral regurgitation. 8. Mild-moderate tricuspid valve regurgitation. 9. Enlarged inferior vena cava size with normal inspiratory collapse (>50%). 10. Abdominal aortic aneurysm . Suggest referral to Radiology Ultrasound for further assessment (39mm). 11. No pericardial effusion. 12. Compared to the report of 06/19/2019 the following changes have occurred: increased right ventricular systolic pressure; abdominal aorta was not visualized on the previous study. Side by side comparison of images performed. Comments Abdominal aortic aneurysm was suggested on the current echocardiographic study. However summation of echos/artifactual changes, potentially leading to overestimation of the aortic size, is not excluded. Echocardiogram May 2019: 1. Moderate-severe ascending aorta dilatation (diameter 48 mm at mid level). 2. Status post [address] prosthesis (1998). 3. Aortic valve prosthesis systolic mean Doppler gradient 21 mmHg. Acceleration time 96 ms. Trivial prosthetic regurgitation. 4. Normal left ventricular chamber size. Calculated ejection fraction 62%. No regional wall motion abnormalities. 5. Borderline right ventricular enlargement. Normal systolic function. Estimated right ventricle systolic pressure 32 mmHg. 6. Severe bi-atrial enlargement. Left atrial volume index 50 ml/m^2. 7. Moderately calcified mitral annulus. Diastolic mean Doppler gradient 3 mmHg (heart rate 53 BPM). Trivial mitral regurgitation. 8. No pericardial effusion. 9. Compared to the report of 03/14/2018 the following changes have occurred: the right ventricle systolic pressure decreased; stable study otherwise. Side by side comparison of images performed. Echo February 2018: 1. Moderate-severe ascending aorta dilatation (diameter 48 mm at proximal level). 2. Status post [address] prosthesis. 3. Aortic valve prosthesis systolic mean Doppler gradient 23 mmHg. Acceleration time 98 ms. Trivialprosthetic regurgitation. 4. Normal left ventricular chamber size and wall thickness. Calculated ejection fraction 60%. Abnormal septal motion (postoperative). No regional wall motion abnormalities are otherwise present. 5. Borderline right ventricular enlargement with preserved systolic function. 6. Estimated right ventricular systolic pressure 41 mmHg (systolic blood pressure 144 mmHg). 7. Moderately calcified mitral annulus. Diastolic mean Doppler gradient 3 mmHg (heart rate 51 BPM).Trivial mitral regurgitation. 8. Normal inferior vena cava size with normal inspiratory collapse (>50%). 9. No pericardial effusion. 10. Compared to the report of 05/18/2015 no significant change has occurred. Side by side comparison of images performed. Echocardiogram April 2015: 1. Transthoracic outreach echo interpretation. 2. Status post [address] [place] prosthesis. 3. Aortic valve prosthesis systolic mean Doppler gradient; 26 mmHg. 4. Trivial aortic valve prosthetic regurgitation. 5. Normal left ventricular chamber size. 6. No regional wall motion abnormalities. 7. Calculated 2?D monoplane volumetric left ventricular ejection fraction; 63 %. 8. Grade 2/4 left ventricular diastolic dysfunction, consistent with moderately elevated left ventricular filling pressure. 9. Borderline right ventricular enlargement with normal systolic function. 10. Estimated right ventricular systolic pressure 41 mmHg (systolic blood pressure 130 mmHg). 11. Moderate?severe ascending aorta dilatation (diameter 48 mm at mid level). Nuclear stress test September 2012: 1. Medium-sized perfusion defect involving the apical, anterior, and anterolateral segments consistent with ischemia and infarction. The area of infarction is quantitated at 7% of the myocardium. 2. LV size is normal. LVEF is quantitated at 49%. Regional wall motion abnormalities include hypokinesis involving the anterior segment (predominantly at mid-ventricle). Septal wall motion is paradoxical, consistent with post-operative status. 3. Ischemic ECG changes and dyspnea reported with exercise. Post-stress dilatation of the left ventricle suggestive of severe (left main or 3vessel) CAD. 4. Compared to the previous nuclear stress study dated 10/20/2011 the apical, anterior and anterolateral perfusion defect is larger and more severe. 5. * Referring Physician's office notified of study results. Current Outpatient Medications Medication Sig ACCU-CHEK COMPACT PLUS TEST strip TEST TWO TIMES A DAY Accu-Chek Guide test strips strips TEST TWO TIMES A DAY amoxicillin (AMOXIL) 500 mg capsule Take 2,000 mg by mouth once. TAKE 4 CAPSULES BY MOUTH 1 HOUR BEFORE DENTAL APPOINTMENT cholecalciferol (VITAMIN D3) 10 mcg (400 Unit) tablet Take 400 Units by mouth daily. ezetimibe (ZETIA) 10 mg tablet Take 1 tablet (10 mg total) by mouth daily. Additional refills with PCP. fish oil 1,000 mg capsule Take 1,000 mg by mouth 2 (two) times a day. furosemide (LASIX) 40 mg tablet Take 40 mg by mouth daily. hydroCHLOROthiazide (MICROZIDE) 12.5 mg capsule Take 12.5 mg by mouth daily. isosorbide mononitrate (IMDUR) 30 mg 24 hr tablet Take 30 mg by mouth daily. lancets test twice a day losartan (COZAAR) 100 mg tablet Take 100 mg by mouth daily. metFORMIN XR (GLUCOPHAGE-XR) 500 mg 24 hr tablet TAKE TWO TABLETS BY MOUTH TWICE A DAY metoprolol tartrate (LOPRESSOR) 50 mg tablet Take 50 mg by mouth 2 (two) times a day. nitroglycerin (NITROSTAT) 0.[address] 1 tablet under the tongue as needed. Repatha SureClick 140 mg/mL pen injector injection INJECT 1ML UNDER THE SKIN EVERY 14 DAYS warfarin (COUMADIN) 5 mg tablet Take 5 mg by mouth. Take as directed per After Visit Summary. warfarin (COUMADIN) 7.5 mg tablet Take 7.5 mg by mouth. Take as directed per After Visit Summary. Allergies Allergen Reactions Adhesive Tape-Silicones Hives (Reselect Reaction) Enoxaparin Rash Heparin Hives (Reselect Reaction) Latex Hives (Reselect Reaction) REVIEW OF SYSTEMS Respiratory: Positive for dry cough and shortness of breath. All other systems reviewed and are negative. The following portions of the patient's history were reviewed and updated as appropriate: allergies, current medications, family history, medical history, social history, surgical history and problemlist. OBJECTIVE Vitals: 07/12/23 0901 07/12/23 0905 BP: 99/61 100/62 BP Location: Left arm Left arm Patient Position: Sitting Sitting Cuff Size: Large Large Pulse: 60 (!) 50 SpO2: 96% Weight: 99.8 kg BP Readings from Last 3 Encounters: 07/12/23 100/62 12/29/22 123/72 06/01/22 (!) 126/50 Wt Readings from Last 3 Encounters: 07/12/23 99.8 kg 12/29/22 101 kg 06/01/22 103 kg Body mass index is 37.89 kg/m??. PHYSICAL EXAMINATION General: Patient is awake, alert, oriented x3. No acute distress. Eyes: No pallor. No icterus. Neck: No jugular venous distention. No carotid bruits. Chest/Lungs: No chest deformity. Normal respiratory effort. Good entry bilaterally. No adventitioussounds. Cardiovascular: Normal rate and regular rhythm. Normal S1 and crisp/metallic S2. There is a 2/6 systolic ejection murmur, early peaking, at the right upper sternal border. No radiation. No diastolic component. No rubs, or gallops. Negative hepatojugular reflux. Abdomen: Protuberant, soft, nontender. Lower Extremities: Lower extremity warm without edema. Upper Extremities: 1/2+ Radial pulses bilaterally, left slightly higher amplitude than the right. Normal capillary refill. No cyanosis. Neurologic: Exam deferred. DIAGNOSTICS I have reviewed the patient's current laboratory, imaging, and other diagnostic studies. Pertinent laboratory studies have been reviewed and are notable for: Hospital Outpatient Visit on 06/14/2023 Component Date Value Ejection Fraction 06/14/2023 63 Mid-Ascending Aorta 06/14/2023 48 LV Mass Index 06/14/2023 98 LV End-Diastolic Diameter 06/14/2023 49 LV End-Systolic Diameter 06/14/2023 30 MV E Velocity 06/14/2023 1.2 MV A Velocity 06/14/2023 1.2 MV E/A 06/14/2023 1 MV e' Velocity Medial 06/14/2023 0.04 MV e' Velocity Lateral 06/14/2023 0.05 MV E/e' Medial 06/14/2023 30 MV E/e' Lateral 06/14/2023 24 Left ventricular stroke * 06/14/2023 44 Cardiac Output 06/14/2023 5.15 Cardiac Index 06/14/2023 2.53 LV Interventricular Sept* 06/14/2023 12 LV Posterior Wall Thickn* 06/14/2023 10 LV Relative Wall Thickne* 06/14/2023 41 Tricuspid Annular S??? 06/14/2023 0.11 TR Vmax 06/14/2023 2.75 RA Pressure 06/14/2023 5 RV Systolic Pressure 06/14/2023 35 AV mean gradient 06/14/2023 20 Aortic valve area 06/14/2023 1.41 Aortic Valve Area Index 06/14/2023 0.69 Aortic Valve Dimensionle* 06/14/2023 0.41 MV mean gradient 06/14/2023 3 LA Volume Index 06/14/2023 40 Aortic Valve Systolic Pe* 06/14/2023 3 Lab Results Component Value Date CREATININE 1.71 (H) 11/18/2022 BUN 14 05/27/2019 NA 139 11/18/2022 CL 101 02/08/2018 Lab Results Component Value Date WBC 9.0 11/18/2022 HGB 11.8 11/18/2022 HCT 36.1 11/18/2022 MCV 95.3 11/18/2022 PLT 277 11/18/2022 Outside labs from [facility] showed A1c from 6.5, comprehensive metabolic panel with creatinine 1.7and mildly elevated glucose, normal electrolytes, normal transaminases, sodium 135,microalbumin waselevated at 40 milligrams/gram. ECG from the last 30 days: No results found. The 10-year ASCVD risk score (Bigg BRONSON, et al., 2019) is: 30.9% Values used to calculate the score: Age: 77 years Sex: Female Is Non- : No Diabetic: Yes Tobacco smoker: No Systolic Blood Pressure: 100 mmHg Is BP treated: Yes HDL Cholesterol: 38 mg/dL Total Cholesterol: 227 mg/dL IMPRESSION/REPORT/PLAN See above. Gilberto Law M.D. NG SETTER documented in this encounter Plan of Treatment Scheduled Orders Name Type Priority Associated Diagnoses Order Schedule ECG 12 Lead ECG Routine Shortness Of Breath Expected: 07/12/2024 (Approximate), Expires: 10/10/2024 Echo Transthoracic (TTE) Echocardiography Routine Shortness Of Breath Expected: 07/12/2024 (Approximate), Expires: 10/10/2024 Scheduled Referrals Name Type Priority Associated Diagnoses Order Schedule Cardiovascular Disease office visit (clinic) General Outpatient Referral Routine Expected: 07/12/2024 (Approximate), Expires: 10/10/2024 documented as of this encounter Visit Diagnoses Diagnosis Atherosclerotic Heart Disease Of [place] Coronary Artery Without Angina Pectoris- Primary Shortness Of Breath documented in this encounter Additional Health Concerns Assessment Noted Time PHQ-9 Depression Total Score: 0 10/16/19 13 9:28 PM CDT documented as of this encounter Care Teams Circular Sawyer Stone Relationship Specialty Start Date End Date Elsewhere, Pcp PCP - General Family Medicine 07/20/17 documented as of this encounter
--- OUTSIDE RECORDS SUMMARY | 2023-09-13 06:12 | XMS_ITS | Encounter Summary ---
Author Name Unknown Organization [facility] Address [address] [place] [address] Care Team Providers Care Cake Wrapper Name Role Phone Elsewhere, Pcp Primary Care Provider Unavailabl e Reason for Referral * Outpatient (Routine) - Closed Specialty Diagnoses / Procedures Referred By Maura casey Referred To Contact Diagnoses Thoracic Aortic Aneurysm Without Rupture Unspecified (HCC) Atherosclerotic Heart Disease Of [place] Coronary Artery Without Angina Pectoris Procedures ECG 12 Lead Gilberto Law M.D. [address] [place] [address] [facility] Region Referral ID Status Reason Start Date Expiration Date Visits Re quested Visits Authorized [id number] Closed 06/01/2022 06/01/2023 1 1 Reason for Visit * Outpatient (Routine) - Closed Specialty Diagnoses / Procedures Referred By Maura casey Referred To Contact Diagnoses Thoracic Aortic Aneurysm Without Rupture Unspecified (HCC) Atherosclerotic Heart Disease Of [place] Coronary Artery Without Angina Pectoris Procedures ECG 12 Lead Gilberto Law M.D. [address] [place] [address] [facility] Region Referral ID Status Reason Start Date Expiration Date Visits Re quested Visits Authorized [id number] Closed 06/01/2022 06/01/2023 1 1 Encounter Details Date Type Department Care Team (Latest Contact Info) Description 12/13/2022 10:21 AM CDT - 12/13/2022 11:59 PM CDT Hospital Encounter Department of Laboratory Medicine in [place], [place] [address] [facility] [place] [phone] Gilberto Law M.D. [address] [place] [phone] Thoracic Aortic Aneurysm Without Rupture Unspecified (HCC); Atherosclerotic Heart Disease Of [place] Coronary Artery Without Angina Pectoris Discharge Disposition: Home or Self Care Social [...] per After Visit Summary. 0 evolocumab (REPATHA SURECLICK) 140 mg/mL pen injector injectionIndications:A therosclerotic Heart Disease Of [place] Coronary Artery Without Angina Pectoris Inject 1 mL (140 mg total) under the skin every 14 (fourteen) days. 2 mL 11 06/09/2022 06/28/2023 documented as of this encounter Plan of Treatment Not on file documented as of this encounter Procedures Procedure Name Priority Date/Time Associated Diagnosis Comments ECG Routine 12/13/2022 10:29 AM CDT Thoracic Aortic Aneurysm Without Rupture Unspecified (HCC) Atherosclerotic Heart Disease Of [place] Coronary Artery Without Angina Pectoris documented in this encounter Results * ECG 12 Lead (12/13/2022 10:29 AM CDT) Ventricular Rate ECG/Min 59 BPM MUSE ND Interval 200 ms MUSE QRSD Interval 98 ms MUSE QT Interval 456 ms MUSE QTC Interval 451 ms MUSE P [place] 52 degrees MUSE R [place] 14 degrees MUSE T Wave [place] 62 degrees MUSE 12/13/2022 10:2 9 AM CDT 12/13/2022 10:34 AM CDT Impressions MUSE - 12/13/2022 10:34 AM CDT Sinus bradycardia Otherwise normal ECG When compared with ECG of 05-MAY-2021 09:12, No significant change was found Reviewed by JOVAN Alas Narrative Procedure Note Jevon Doyle M.B.B.S. - 12/13/2022 IMPRESSION: Sinus bradycardia Otherwise normal ECG When compared with ECG of 05-MAY-2021 09:12, No significant change was found Reviewed by JOVAN Alas Gilberto Law M.D. ECG ORDERABLES MUSE NA documented in this encounter Visit Diagnoses Diagnosis Thoracic Aortic Aneurysm Without Rupture Unspecified (HCC) Atherosclerotic Heart Disease Of [place] Coronary Artery Without Angina Pectoris documented in this encounter Additional Health Concerns Assessment Noted Time PHQ-9 Depression Total Score: 0 10/16/19 13 9:28 PM CDT documented as of this encounter Care Teams Cake Wrapper Relationship Specialty Start Date End Date Elsewhere, Pcp PCP - General Family Medicine 07/20/17 documented as of this encounter
--- OUTSIDE RECORDS SUMMARY | 2023-09-13 06:12 | XMS_ITS | Encounter Summary ---
Author Name Unknown Organization [facility] Address [address] [place] [address] Care Team Providers Care Cocktail Server Name Role Phone Elsewhere, Pcp Primary Care Provider Unavailabl e Reason for Referral * Outpatient (Routine) - Closed Specialty Diagnoses / Procedures Referred By Maura casey Referred To Contact Diagnoses Thoracic Aortic Aneurysm Without Rupture Unspecified (HCC) Atherosclerotic Heart Disease Of [place] Coronary Artery Without Angina Pectoris Procedures Echo Transthoracic (TTE) CT ECHO TTE 2D W DPLR Gilberto Julian M.D. [address] [place] [address] [facility] Region Referral ID Status Reason Start Date Expiration Date Visits Re quested Visits Authorized [id number] Closed 06/01/2022 07/30/2023 1 1 MAKER HELPER Reason for Visit * Outpatient (Routine) - Closed Specialty Diagnoses / Procedures Referred By Maura casey Referred To Contact Diagnoses Thoracic Aortic Aneurysm Without Rupture Unspecified (HCC) Atherosclerotic Heart Disease Of [place] Coronary Artery Without Angina Pectoris Procedures Echo Transthoracic (TTE) CT ECHO TTE 2D W DPLR Gilberto Julian M.D. [address] [place] [address] [facility] Region Referral ID Status Reason Start Date Expiration Date Visits Re quested Visits Authorized [id number] Closed 06/01/2022 07/30/2023 1 1 Encounter Details Date Type Department Care Team (Latest Contact Info) Description 06/14/2023 1:07 PM BELT MAKER HELPER - 06/14/2023 11:59 PM BELT MAKER HELPER Hospital Encounter Department of Cardiovascular Diseases in [place], [place] [address] [facility] [place] [phone] Gilberto Law M.D. [address] [facility] [place] [phone] Thoracic Aortic Aneurysm Without Rupture Unspecified (HCC); Atherosclerotic Heart Disease Of [place] Coronary Artery Without Angina Pectoris Discharge Disposition: [...] pen injector injectionIndications:A therosclerotic Heart Disease Of [place] Coronary Artery Without Angina Pectoris Inject 1 mL (140 mg total) under the skin every 14 (fourteen) days. 2 mL 06/09/2022 06/28/2023 documented as of this encounter Plan of Treatment Not on file documented as of this encounter Procedures Procedure Name Priority Date/Time Associated Diagnosis Comments (TTE) 2D ECHO DOPPLER COLOR Routine 06/14/2023 2:09 PM BELT MAKER HELPER Thoracic Aortic Aneurysm Without Rupture Unspecified (HCC) Atherosclerotic Heart Disease Of [place] Coronary Artery Without Angina Pectoris documented in this encounter Results * (TTE) 2D ECHO DOPPLER COLOR (06/14/2023 2:09 PM BELT MAKER HELPER) Ejection Fraction 63 MC CV EIMS Mid-Ascending [...] Region Laterality Modality Echocardiography 06/14/2023 1:09 PM BELT MAKER HELPER Impressions 06/14/2023 2:55 PM BELT MAKER HELPER Status post [address] [place] mechanical [...] the Order-Level Documents. Narrative 06/14/2023 2:55 PM BELT MAKER HELPER For the complete report, see the Order-Level [...] Documents. Gilberto Law M.D. CV ECHO PROCEDURES documented in this encounter Visit Diagnoses Diagnosis Thoracic Aortic Aneurysm Without Rupture Unspecified (HCC) Atherosclerotic Heart Disease Of [place] Coronary Artery Without Angina Pectoris documented in this encounter Additional Health Concerns Assessment Noted Time PHQ-9 Depression Total Score: 0 10/16/19 13 9:28 PM CDT documented as of this encounter Care Teams Cocktail Server Relationship Specialty Start Date End Date Elsewhere, Pcp PCP - General Family Medicine 07/20/17 documented as of this encounter
--- OUTSIDE RECORDS SUMMARY | 2023-09-13 06:12 | XMS_ITS | Encounter Summary ---
Author Name Unknown Organization [facility] Address [address] [place] [address] Care Team Providers Care Photographic Supervisor Name Role Phone Elsewhere, Pcp Primary Care Provider Unavailabl e Reason for Referral * Outpatient (Routine) - Closed Specialty Diagnoses / Procedures Referred By Maura casey Referred To Contact Cardiovascular Disease Gilberto Law M.D. [address] [place] [address] [facility] Referral ID Status Reason Start Date Expiration Date Visits Re quested Visits Authorized [id number] Closed 12/29/2022 12/28/2025 1 1 Reason for Visit * Reason Comments Follow-up * Outpatient (Routine) - Closed Specialty Diagnoses / Procedures Referred By Maura casey Referred To Contact Cardiovascular Disease Gilberto Law M.D. [address] [place] [address] [facility] Referral ID Status Reason Start Date Expiration Date Visits Re quested Visits Authorized [id number] Closed 06/01/2022 05/31/2025 1 1 Encounter Details Date Type Department Care Team (Latest Contact Info) Description 12/29/2022 10:45 AM CDT Office Visit Department of Cardiovascular Diseases in [place], [place] [address] [place] [phone] Gilberto Law M.D. [address] [place] [phone] Acquired Aortic Valve Disorder (Primary Dx) Social History Tobacco Use Types Packs/Day Years [...] Sign Reading Time Taken Comments Blood Pressure 123/72 12/29/2022 10:30 AM CDT Pulse 60 12/29/2022 10:30 AM CDT Temperature 36.2 ??C (97.1 ??F) 12/29/2022 10:30 AM C DT Respiratory Rate - - Oxygen Saturation 95% 12/29/2022 10:30 AM CDT Inhaled Oxygen Concentration - - Weight 101 kg (222 lb 10.6 oz) 12/29/2022 10:30 AM CDT Height - - Body Mass Index 38.34 06/01/2022 9:37 AM CDT documented in this encounter Progress Notes * Gilberto Law M.D. - 12/29/2022 10:45 AM CDT ASSESSMENT / PLAN Coronary artery disease CABG x2 at [facility] on 1998. PCI BMS LM and pLCx 06/17/2011. PCI SHAKILA LM and Cx for ISR 10/24/2011. PCI SHAKILA mLAD and PTCA LM-LCx ISR 10/16/2012. Aortic valve replacement #21 mm [place] 1998. Long-term anticoagulation, Warfarin. Managed by [facility]. Hypertension with possible white coat component. Seen by Nephrology for resistant hypertension, last appointment 10/2016. Hyperlipidemia. Myalgia with statins, discontinued rosuvastatin 11/2018 (unable to tolerate even a weekly dose). Ascending aortic aneurysm. Moderate?severe ascending aorta dilatation (48 mm at mid level) 04/2022, 49 04/2021, 48 03/2020, 2019, 2018, 04/2015. Based on [facility] records from 06/2007 aorta was 50 mm. No AAA on US 04/2020. Diabetes mellitus type 2. Obesity, BMI 38.3. Obstructive sleep apnea, untreated. Nephrolithiasis. History of lung nodule. Prior history of tobacco use, quit . Heart failure with preserved systolic function. Stable dyspnea on exertion, improved lower extremity edema (edema had increased since February 2022). Unfortunately, unable to more aggressively diurese the patient due to worsening renal function. This has stabilized with the current regimen. Euvolemicon exam. BNP had normalized in October. No hyponatremia currently. We previously emphasized the importance of low-sodium diet. We explained to the patient that she could potentially be a candidate for an SGLT-2 inhibitors. This could be initiated by her primary care provider, in the setting of diabetes, since that could help her heart failure with preserved systolic function. If that is initiated, her diuretic dosage should be halved and repeat renal function performed to monitor. The patient wasprovided with a copy of her echocardiogram (to give to her primary care provider). We plan on repeating this study in May 2023. We explained to the patient and her that heart failure with preserved systolic function symptoms can not be solely ameliorated by using heart medications. Thesymptoms are also secondary also to aging, deconditioning, obesity, sleep apnea, pulmonary and musculoskeletal issues. In view of that, a more holistic approach is needed. We offered the patient to meet with an composition worker in [place], to design an exercise program for her. She preferredto attempt to exercise on her own, for now. It is likely that obesity may be playing a role in her symptoms. In view of that, weight loss was recommended. Since this will likely be a challenge, she could discuss with primary care provider if pharmacologic therapies for obesity, including semaglutide could be beneficial. Coronary artery disease/dyspnea on exertion. See above. Her current symptoms are unlikely ischemic in nature but, in case of further increase, particularly if more limiting to the patient, repeat ischemic assessment will be performed as discussed. She agrees to call us if that occurs. Hypertension is well controlled. She is undergoing antilipemic therapy with ezetimibe and PCSK9 inhibitors (started around May 2022). We have asked the patient to retrieve labs with her primary care provider for our review, next follow-up appointment. If recent lipids are not available, we will consider during the in the office. Continue diabetes management with primary care provider. Aortic valve replacement, [place] #21 per notes/ascending aortic aneurysm. Stable auscultation and echocardiographic findings. Continue lifelong warfarin anticoagulation and antibiotic prophylaxis, managed by [facility]. No bleeding issues report. We will continue monitoring with yearly echocardiograms. If further dilatation is seen, she will need dedicated cross-sectional imaging of the aorta. Adequate blood pressure control on beta-valerie and ARB should help prevent progression. Improved lipids could help as well. No abdominal aortic aneurysm on ultrasound 04/2020. Bluish changes in hands, previously reported. Significant dilatation of venous structures in palm of her hands described. No abnormalities currently seen. Not suggestive of a significant arterial vascular problem. No specific workup indicated at this time. PLAN: #1 Acquired Aortic Valve Disorder Other orders - Cardiovascular Disease office visit (clinic) General - Cardiovascular Disease office visit (clinic) General; Future; Expected date: 06/30/2023 There are no discontinued medications. - Follow up with Cardiology in 6 months or call us sooner in case of problems or concerns. The patient expressed understanding of the information discussed during the visit today and agreement with the plan. CARDIOLOGY SUBSEQUENT VISIT Location: [facility]. SUBJECTIVE CHIEF COMPLAINT Office follow-up. HISTORY OF PRESENT ILLNESS Ms. Demi Tolliver is a very pleasant 77 y.o. female who presents to [facility] for follow-up. Her primary care provider is ELSEWHERE, PCP. Last seen by me on May 2022. Presenting with her . I had the pleasure of seeing Ms. Demi Tolliver in clinic today. She is 77 y.o. years old. The patient presents today stating she is doing overall well from a cardiovascular standpoint. Still shortness of breath with activities but no lower extremity edema. She does have a sedentary lifestyle. No significant bleeding abnormalities on her current treatment. Compliant with the amoxicillin. She does not recall having had labs with a primary care provider since our last visit. Labs done with us were reviewed with the patient. We offer Repatha May 2022, tolerating well. Sedentary lifestyle. She drinks alcohol occasionally. Four cups of coffee a day. No illicit drug use. PERTINENT CARDIAC (OR RELATED) STUDIES REVIEWED: Echocardiogram April 2022: 1. Transthoracic outreach echo [...] tablet Take 400 Units by mouth daily. evolocumab (REPATHA SURECLICK) 140 mg/mL pen injector injection Inject 1 mL (140 mg total) under the skin every 14 (fourteen) days. ezetimibe (ZETIA) 10 mg tablet Take 1 [...] 1 tablet under the tongue as needed. warfarin (COUMADIN) 5 mg tablet Take 5 mg by mouth. Take as directed per After Visit Summary. warfarin (COUMADIN) 7.5 mg tablet Take 7.5 mg by mouth. Take as directed per After Visit Summary. Allergies Allergen Reactions Adhesive Tape-Silicones Hives Enoxaparin Rash Heparin Hives Latex Hives REVIEW OF SYSTEMS Respiratory: Positive for dry cough and shortness of breath. Cardiovascular: - Negative for chest pain, pressure or tightness, swelling in the legs or feet and rapid or fluttering heart beat. Musculoskeletal: Positive for pain or stiffness in the joints. Neurological: - Negative for loss of consciousness. All other systems reviewed and are negative. The following portions of the patient's history were reviewed and updated as appropriate: allergies, current medications, family history, medical history, social history, and problem list. OBJECTIVE Vitals: 12/29/22 1030 BP: 123/72 BP Location: Right arm Patient Position: Sitting Cuff Size: Regular Pulse: 60 Temp: 36.2 ??C TempSrc: Temporal SpO2: 95% Weight: 101 kg BP Readings from Last 3 Encounters: 12/29/22 123/72 06/01/22 (!) 126/50 05/12/21 128/66 Wt Readings from Last 3 Encounters: 12/29/22 101 kg 06/01/22 103 kg 05/12/21 107 kg Body mass index is 38.34 kg/m??. PHYSICAL EXAMINATION GENERAL: Patient is awake, alert, oriented x3. No acute distress. EYES: No pallor. No icterus. No xanthelasma. NECK: No jugular venous distention. No carotid bruits. CHEST/LUNGS: No chest deformity. Normal respiratory effort. Good entry bilaterally. No adventitioussounds. CARDIOVASCULAR: Normal rate and regular rhythm. Normal S1 and S2. There is a 2/6 systolic ejection murmur, peaking at the right upper sternal border. No radiation. No diastolic component. No rubs, orgallops. Negative hepatojugular reflux. ABDOMEN: Protuberant, soft, nontender. LOWER EXTREMITIES: Lower extremity warm without edema. UPPER EXTREMITIES: 2+ Radial pulses bilaterally. Normal capillary refill. No cyanosis. NEUROLOGIC: Exam deferred. DIAGNOSTICS I have reviewed the patient's current laboratory, imaging, and other diagnostic studies. Pertinent laboratory studies have been reviewed and are notable for: Hospital Outpatient Visit on 12/13/2022 Component Date Value Ventricular Rate ECG/Min 12/13/2022 59 IN Interval 12/13/2022 200 QRSD Interval 12/13/2022 98 QT Interval 12/13/2022 456 QTC Interval 12/13/2022 451 P [place] 12/13/2022 52 R [place] 12/13/2022 14 T Wave [place] 12/13/2022 62 Hospital Outpatient Visit on 11/18/2022 Component Date Value Hemoglobin 11/18/2022 11.8 Hematocrit 11/18/2022 36.1 Erythrocytes 11/18/2022 3.79 (L) MCV 11/18/2022 95.3 RBC Distrib Width 11/18/2022 13.7 Platelet Count 11/18/2022 277 Leukocytes 11/18/2022 9.0 NT-Pro BNP 11/18/2022 462 Sodium, P 11/18/2022 139 Potassium, P 11/18/2022 4.6 Creatinine 11/18/2022 1.71 (H) Estimated GFR (eGFR) 11/18/2022 30 (L) Lab Results Component Value Date CREATININE 1.71 (H) 11/18/2022 BUN 14 05/27/2019 NA 139 11/18/2022 CL 101 02/08/2018 Lab Results Component Value Date WBC 9.0 11/18/2022 HGB 11.8 11/18/2022 HCT 36.1 11/18/2022 MCV 95.3 11/18/2022 PLT 277 11/18/2022 ECG from the last 30 days: ECG 12 Lead Result Date: 12/13/2022 Sinus bradycardia Otherwise normal ECG When compared with ECG of 05-MAY-2021 09:12, No significant change was found Reviewed by JOVAN Alas 59 beats per minute; QTC 451 ms Imaging last 30 days: No results found. No results found for this or any previous visit. The 10-year ASCVD risk score (Bigg BRONSON, et al., 2019) is: 43% Values used to calculate the score: Age: 77 years Sex: Female Is Non- : No Diabetic: Yes Tobacco smoker: No Systolic Blood Pressure: 123 mmHg Is BP treated: Yes HDL Cholesterol: 38 mg/dL Total Cholesterol: 227 mg/dL IMPRESSION/REPORT/PLAN See above. Gilberto Law M.D. documented in this encounter Plan of Treatment Scheduled Referrals Name Type Priority Associated Diagnoses Order Schedule Cardiovascular Disease office visit (clinic) General Outpatient Referral Routine Expected: 06/30/2023 (Approximate), Expires: 03/31/2024 documented as of this encounter Visit Diagnoses Diagnosis Acquired Aortic Valve Disorder- Primary documented in this encounter Additional Health Concerns Assessment Noted Time PHQ-9 Depression Total Score: 0 10/16/19 13 9:28 PM CDT documented as of this encounter Care Teams Photographic Supervisor Relationship Specialty Start Date End Date Elsewhere, Pcp PCP - General Family Medicine 07/20/17 documented as of this encounter
--- OUTSIDE RECORDS SUMMARY | 2023-09-13 06:12 | XMS_ITS | Encounter Summary ---
Author Name Unknown Organization [facility] Address [address] [place] [address] Care Team Providers Care Forensic Nurse Name Role Phone Elsewhere, Pcp Primary Care Provider Unavailabl e Encounter Details Date Type Department Care Team (Latest Contact Info) Description 11/14/2022 Clinical Communication Department of Cardiovascular Diseases in [place], [place] [address] [place] [phone] Gilberto Law M.D. [address] [place] [phone] Social History Tobacco Use Types Packs/Day Years [...] on file documented as of this encounter Miscellaneous Notes * Telephone Encounter - Gilberto Law M.D. - 11/14/2022 4:15 PM CDT I was going to asked to repeat sodium, potassium, creatinine, CBC and BNP in the morning, prior to follow-up appointment with me. However, the appointment was scheduled for 12/29/2022. In view of that,I would like the patient to have updated labs at on 11/18/2022 or 11/21/2022. We need to continue monitoring her kidney function, to make sure she is tolerating the diuretics. Thank you. * Telephone Encounter - Gilberto Law M.D. - 11/14/2022 4:15 PM CDT ----- Message from Aniyah Peck L.P.N. sent at 11/14/2022 9:53 AM CDT ----- Name of person contacted: Patient Relationship to patient: Not applicable Call back number: [phone] Digital Analytics Manager: Not applicable Information provided: Patient given information exactly as stated by Dr. Law. Patient reports her weight and SOB are the same. 4-10 BP 119/63 4-11 BP 114/62 4-12 BP 101/51 4-13 BP 114 54 4-14 BP 112/56 4-15 BP 117/60 4-16 BP 115/65 Patient has not be documenting her pulse. Will have scheduling call patient to set up her appointment with Dr. Law. sporting goods salesperson/patient received and understood education/information provided: Yes sporting goods salesperson/patient agreed to the Plan of Care: Yes documented in this encounter Plan of Treatment Not on file documented as of this encounter Results * (ABNORMAL) CBC without Differential (11/18/2022 10:32 AM CDT) [facility] Hemoglobin 11.8 11.6 - 15.0 g/dL 11/18/2022 [...] CDT Gilberto Law M.D. LAB BLOOD ADD-ON [facility] [address] [place] [address], [place] [id number] [facility] in [place] [address] [place] [address] * (ABNORMAL) Creatinine with Estimated GFR (11/18/2022 10:31 AM CDT) Creatinine 1.71(H) 0.59 - 1.04 mg/dL 11/18/2022 1:29 PM CDT OWAT Estimated GFR (eGFR) 30(L) >=60 mL/min/BSA 11/18/2022 1:29 PM CDT OWAT Comment: Estimated GFR calculated using the 2020 CKD_EPI creatinine equation. Blood (Blood, Venous) 11/18/2022 10:31 AM CDT 11/18/2022 12:58 PM CDT Gilberto Law M.D. LAB BLOOD ADD-ON [facility] [address] [place] [address], [place] OWAT [facility] [place] [address] [place] [address] * Potassium (11/18/2022 10:31 AM CDT) Potassium, P 4.6 3.6 - 5.2 mmol/L 11/18/2022 1:29 PM CDT OWAT Blood (Blood, Venous) 11/18/2022 10:31 AM CDT 11/18/2022 12:58 PM CDT Gilberto Law M.D. LAB BLOOD ADD-ON [facility] [address] [place] [address], [place] OW[place] [facility] in [place] [address] [place] [address] * Sodium (11/18/2022 10:31 AM CDT) Sodium, P 139 135 - 145 mmol/L 11/18/2022 1:29 PM CDT OWAT Blood (Blood, Venous) 11/18/2022 10:31 AM CDT 11/18/2022 12:58 PM CDT Gilberto Law M.D. LAB BLOOD ADD-ON Performing Organization Address City/[facility]/ZIP Co de Phone Number [facility] [address] [place] [address], [place] OW[place] [facility] in [place] [address] [place] [address] * NT-Pro B-Type Natriuretic Peptide (BNP) (11/18/2022 10:31 AM CDT) NT-Pro BNP 462 <=540 pg/mL 11/18/2022 1:34 PM CDT OWAT Comment: NT-proBNP values less than 300 pg/mL [...] CDT Gilberto Law M.D. LAB BLOOD ADD-ON [facility] [address] [place] [address], [facility] OWAT [facility] in [place] [address] [place] [address] documented in this encounter Visit Diagnoses Diagnosis Shortness Of Breath- Primary documented in this encounter Additional Health Concerns Assessment Noted Time PHQ-9 Depression Total Score: 0 10/16/19 13 9:28 PM CDT documented as of this encounter Care Teams Forensic Nurse Relationship Specialty Start Date End Date Elsewhere, Pcp PCP - General Family Medicine 07/20/17 documented as of this encounter
--- OUTSIDE RECORDS SUMMARY | 2023-09-13 06:12 | XMS_ITS ---
Author Name Unknown Organization [facility] Address [address] [place] [address] Care Team Providers Care Lead Rider Name Role Phone Unavailable Unavailable Unavailable Surgery Details Not on file Complications Check Surgery Details section. Procedure Estimated Blood Loss Check Surgery Details section. Procedure Findings Check Surgery Details section. Procedure Specimens Taken Check Surgery Details section.
--- OUTSIDE RECORDS SUMMARY | 2023-09-13 06:13 | XMS_ITS | Encounter Summary ---
Author Name Unknown Organization [facility] Address [address] [place] [address] Care Team Providers Care Flat Drier Name Role Phone Elsewhere, Pcp Primary Care Provider Unavailabl e Encounter Details Date Type Department Care Team (Late st Contact Info) Description 09/05/2022 Orders Only Department of Cardiovascular Diseases in [place], [place] [address] [place] [phone] Gilberto Law M.D. [address] [place] [address] [phone] Shortness Of Breath (Primary Dx) Social History Tobacco Use Types [...] as of this encounter Results * (ABNORMAL) Creatinine with Estimated GFR (10/19/2022 9:31 AM CDT) Creatinine 1.80(H) 0.59 - 1.04 mg/dL 10/19/2022 11:41 AM CDT OWAT Estimated GFR (eGFR) 29(L) >=60 mL/min/BSA 10/19/2022 11:41 AM CDT OWAT Comment: Estimated GFR calculated using the 2020 CKD_EPI creatinine equation. Blood (Blood, Venous) 10/19/2022 9:31 AM CDT 10/19/2022 11:08 AM CDT Gilberto Law M.D. LAB BLOOD ADD-ON [facility] [address] [place] [address], [place] OW[place] [facility] in [place] [address] [place] [address] * Potassium (10/19/2022 9:31 AM CDT) Potassium, P 4.9 3.6 - 5.2 mmol/L 10/19/2022 11:41 AM CDT OWAT Blood (Blood, Venous) 10/19/2022 9:31 AM CDT 10/19/2022 11:08 AM CDT Gilberto Law M.D. LAB BLOOD ADD-ON Performing Organization Address City/[facility]/ZIP Co de Phone Number [facility] [address] [place] [address], [place] OW[place] [facility] in [place] [address] [place] [address] * Sodium (10/19/2022 9:31 AM CDT) Sodium, P 135 135 - 145 mmol/L 10/19/2022 11:41 AM CDT OWAT Blood (Blood, Venous) 10/19/2022 9:31 AM CDT 10/19/2022 11:08 AM CDT Gilberto Law M.D. LAB BLOOD ADD-ON [facility] [address] [place] [address], [place] OW[place] [facility] [place] [address] [place] [address] documented in this encounter Visit Diagnoses Diagnosis Shortness Of Breath- Primary documented in this encounter Additional Health Concerns Assessment Noted Time PHQ-9 Depression Total Score: 0 10/16/19 13 9:28 PM CDT documented as of this encounter Care Teams Flat Drier Relationship Specialty Start Date End Date Elsewhere, Pcp PCP - General Family Medicine 07/20/17 documented as of this encounter
== END 2023-09-12 09:26 | disposition home or self-care (01) ==
PROVIDERS: PCP Internal Medicine; Referring Provider Internal Medicine; Visit Provider Internal Medicine
DX: I10 Essential (primary) hypertension (principal)
CPT/HCPCS: 80048

== ENCOUNTER 2023-09-25 08:36 | Outpatient (CLI) | payer OTHER, SELFPAY ==
[2023-09-25 13:32] LABS: INR 1.79 (0.91-1.10); Prothrombin Time 22.1 Seconds
== END 2023-09-25 08:37 | disposition home or self-care (01) ==
LOC: FBOREF 08:37
PROVIDERS: PCP Internal Medicine; Visit Provider Internal Medicine
DX: Z51.81 Encounter for therapeutic drug level monitoring (principal); Z79.01 Long term (current) use of anticoagulants
CPT/HCPCS: 80048; 85610

== ENCOUNTER 2023-11-16 10:04 | Outpatient (CLI) | payer OTHER, SELFPAY ==
--- OUTSIDE RECORDS SUMMARY | 2023-11-20 08:50 | XMS_ITS | Clinical Summary ---
Author Name Unknown Organization [facility] Address [address] [place] [address] Care Team Providers Care Aquatic Facility Manager Name Role Phone Elsewhere, Pcp Primary Care Provider Unavailabl e Source Comments Patient records contain information from all sites at [facility]. For routine questions regarding patient records, call [phone] during business hours, M-F 8:00 AM - 5:00 PM Central Time. Record requests for emergency care only can be directed to [phone] at any time.[facility] Allergies Active Allergy Reactions Criticality Noted Date Comments Adhesive Tape-Silicones Hives (Reselect Reaction) 01/05/2018 Enoxaparin Rash 10/15/2012 Heparin Hives (Reselect Reaction) 01/05/2018 Latex Hives (Reselect Reaction) 01/05/2018 Medications Medication Sig Dispensed Refills Start Date End Date Status isosorbide mononitrate (IMDUR) 30 mg 24 hr tablet Take 30 mg by mouth daily. Active metoprolol tartrate (LOPRESSOR) 50 mg tablet Take 50 mg by mouth 2 (two) times a day. Active fish oil 1,000 mg capsule Take 1,000 mg by mouth 2 (two) times a day. Active cholecalciferol (VITAMIN D3) 10 mcg (400 Unit) tablet Take 400 Units by mouth daily. Active warfarin (COUMADIN) 5 mg tablet Take 5 mg by mouth. Take as directed per After Visit Summary. Active warfarin (COUMADIN) 7.5 mg tablet Take 7.5 mg by mouth. Take as directed per After Visit Summary. Active ACCU-CHEK COMPACT PLUS TEST strip TEST TWO TIMES A DAY 3 03/26/2019 Active lancets test twice a day 10/13/2008 Active nitroglycerin (NITROSTAT) 0.[address] 1 tablet under the tongue as needed. 10/16/2012 Active ezetimibe (ZETIA) 10 mg tablet Take 1 tablet (10 mg total) by mouth daily. Additional refills with PCP. 90 tablet 1 12/09/2019 Active losartan (COZAAR) 100 mg tablet Take 100 mg by mouth daily. 03/12/2021 Active furosemide (LASIX) 40 mg tablet Take 40 mg by mouth daily. 05/04/2022 Active Accu-Chek Guide test strips strips TEST TWO TIMES A DAY 05/21/2022 Active amoxicillin (AMOXIL) 500 mg capsule Take 2,000 mg by mouth once. TAKE 4 CAPSULES BY MOUTH 1 HOUR BEFORE DENTAL APPOINTMENT 03/02/2022 Active hydroCHLOROthiazide (MICROZIDE) 12.5 mg capsule Take 12.5 mg by mouth daily. 03/27/2022 Active metFORMIN XR (GLUCOPHAGE-XR) 500 mg 24 hr tablet TAKE TWO TABLETS BY MOUTH TWICE A DAY 03/17/2022 Active Repatha SureClick 140 mg/mL pen injector injectionIndication s:Atherosclerotic Heart Disease Of [place] Coronary Artery Without Angina Pectoris INJECT 1ML UNDER THE SKIN EVERY 14 DAYS 2 mL 11 06/28/2023 Active Active Problems Problem Noted Date Diagnosed Date Hypertensive Heart Disease Without Heart Failure 01/05/2018 Hyperlipidemia 01/05/2018 Shortness Of Breath 01/05/2018 Thoracic Aortic Aneurysm Without Rupture Unspeci fied 01/05/2018 Acquired Aortic Valve Disorder 01/05/2018 Hypertension 11/12/2013 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 Diabetes Mellitus Type 2 11/12/2013 Social History Tobacco Use Types Packs/Day Years Used Date Smoking Tobacco: Former Cigarettes Q uit: 1998 Smokeless Tobacco: Never Tobacco [...] Comments Blood Pressure 100/62 07/12/2023 9:05 AM PUBLIC RELATIONS PLAYER Pulse 50 07/12/2023 9:05 AM PUBLIC RELATIONS PLAYER Temperature 36.2 ??C (97.1 ??F) 12/29/2022 10:30 AM C DT Respiratory Rate 24 05/12/2021 9:25 AM CDT Oxygen Saturation 96% 07/12/2023 9:01 AM PUBLIC RELATIONS PLAYER room air Inhaled Oxygen Concentration - - Weight 99.8 kg (220 lb 0.3 oz) 07/12/2023 9:01 A M PUBLIC RELATIONS PLAYER Height 162.3 cm (5' 3.9) 06/01/2022 9:37 [...] A1C 11/26/2019 05/27/2019, 10/20/2011 COVID-19 Vaccine (4 - 2022-2 4 season) 2023 05/06/2021, 10/16/2020, 09/24/2020 [...] history exists Medical Devices Implanted Type Area Cracker Dough Mixer Device Identifier Shelf Expiration Date Model / Serial / Lot Vision Stent 3.5 X 28 - [employer] [id number] Implanted:Qty: 1 on 06/17/2011 Cardiac Stent Kitchen Description:Device Manufactu rer - [employer]. Device Status Text - [id number]. Xience Stent 3.5 X 28 - [employer] [id number] Implanted:Qty: 1 on 10/24/2011 Cardiac Stent Kitchen Description:Device Manufactu rer - [employer]. Device Status Text - [id number]. Xience Stent 2.5 X 15 - [employer] [id number] Implanted:Qty: 1 on 10/16/2012 Cardiac Stent Kitchen Description:Device Manufactu rer - [employer]. Device Status Text - [id number]. Sofi Xience 2.25 X 15 - [employer] [id number] Implanted:Qty: 1 on 10/16/2012 Cardiac Stent Kitchen Description:Device Manufactu rer - [employer] V[employer]. Device Status Text - [id number]. Stent Inlay 7fr X 24cm - Fowler [id number] Implanted:Qty: 1 on 11/14/2013 Ureteral Stent C.[employer].Bard Description:Device Manufactu [facility] - [employer] Patient Care Division. Device Status Text - [id number]. Procedures Procedure Name Priority Date/Time Associated Diagnosis Comments SODIUM, S/P Routine 11/18/2022 10:31 AM CDT Shortness Of Breath POTASSIUM, S/P Routine 11/18/2022 10:31 AM CDT Shortness Of Breath CREATININE WITH EGFR, S/P Routine 11/18/2022 10:31 AM CDT Shortness Of Breath HEMOGLOBIN A1C, B Routine 05/27/2019 8:1 4 AM CDT from Last 3 Months or Most Recently Relevant to Health Maintenance Results * Sodium (11/18/2022 10:31 AM CDT) Sodium, P 139 135 - 145 mmol/L 11/18/2022 1:29 PM CDT OWAT Blood (Blood, Venous) 11/18/2022 10:31 AM CDT 11/18/2022 12:58 PM CDT Gilberto Law M.D. LAB BLOOD ADD-ON Performing Organization Address City/[facility]/ZIP Co de Phone Number [facility] [address] [place] [address], [place] OWAT [facility] [place] [address] [place] [address] * Potassium (11/18/2022 10:31 AM CDT) Potassium, P 4.6 3.6 - 5.2 mmol/L 11/18/2022 1:29 PM CDT OWAT Blood (Blood, Venous) 11/18/2022 10:31 AM CDT 11/18/2022 12:58 PM CDT Gilberto Law M.D. LAB BLOOD ADD-ON Performing Organization Address City/[facility] Co de Phone Number [facility] [address] [place] [address], [facility] OWAT [facility] [place] [address] [place] [address] * (ABNORMAL) Creatinine with Estimated GFR (11/18/2022 10:31 AM CDT) Creatinine 1.71(H) 0.59 - 1.04 mg/dL 11/18/2022 1:29 PM CDT OWAT Estimated GFR (eGFR) 30(L) >=60 mL/min/BSA 11/18/2022 1:29 PM CDT OWAT Comment: Estimated GFR calculated using the 2020 CKD_EPI creatinine equation. Blood (Blood, Venous) 11/18/2022 10:31 AM CDT 11/18/2022 12:58 PM CDT Gilberto Law M.D. LAB BLOOD ADD-ON [facility] [address] [place] [address], [place] OWAT [facility] [place] [address] [place] [address] * Hemoglobin A1c (05/27/2019 8:14 AM CDT) EXT Hemoglobin A1c, B 6.3 OTHER (SPECIFY IN CLINICAL SYSTEMS EDUCATOR) Blood (Blood, Venous) Ordering Provider External MEverardo. LAB BLOO D ADD-ON OTHER (SPECIFY IN CLINICAL SYSTEMS EDUCATOR) N/A from Last 3 Months or Most Recently Relevant to Health Maintenance Care Teams Aquatic Facility Manager Relationship Specialty Start Date End Date Elsewhere, Pcp PCP - General Family Medicine 07/20/17
--- OUTSIDE RECORDS SUMMARY | 2023-11-20 08:50 | XMS_ITS | Referral Summary ---
Author Name Unknown Organization [facility] Address [address] [place] [address] Care Team Providers Care Card Maker Name Role Phone Elsewhere, Pcp Primary Care Provider Unavailabl e Source Comments Patient records contain information from all sites at [facility]. For routine questions regarding patient records, call [phone] during business hours, M-F 8:00 AM - 5:00 PM Central Time. Record requests for emergency care only can be directed to [phone] at any time.[facility] Allergies Active Allergy Reactions Criticality Noted Date [...] pen injector injectionIndication s:Atherosclerotic Heart Disease Of [place] Coronary Artery Without Angina Pectoris INJECT 1ML UNDER THE SKIN EVERY 14 DAYS 2 mL 11 06/28/2023 Active Active Problems Problem Noted Date Diagnosed Date Hypertensive Heart Disease Without Heart Failure 01/05/2018 Hyperlipidemia 01/05/2018 Shortness Of Breath 01/05/2018 Thoracic Aortic Aneurysm Without Rupture Unspeci fied 01/05/2018 Acquired Aortic Valve Disorder 01/05/2018 Hypertension 11/12/2013 Atherosclerotic Heart Diseas e Of [place] Coronary Artery Without Angina Pectoris 11/12/2013 Diabetes [...] Comments Blood Pressure 100/62 07/12/2023 9:05 AM ORAL PATHOLOGIST Pulse 50 07/12/2023 9:05 AM ORAL PATHOLOGIST Temperature 36.2 ??C (97.1 ??F) 12/29/2022 10:30 AM C DT Respiratory Rate 24 05/12/2021 9:25 AM CDT Oxygen Saturation 96% 07/12/2023 9:01 AM ORAL PATHOLOGIST room air Inhaled Oxygen Concentration - - Weight 99.8 kg (220 lb 0.3 oz) 07/12/2023 9:01 A M ORAL PATHOLOGIST Height 162.3 cm (5' 3.9) 06/01/2022 9:37 AM CDT Body Mass Index 37.89 06/01/2022 9:37 AM CDT Plan of Treatment Not on file Medical Devices Implanted Type Area Treater Device Identifier Shelf Expiration Date Model / Serial / Lot Vision Stent 3.5 X 28 - [employer] [id number] Implanted:Qty: 1 on 06/17/2011 Cardiac Stent Kitchen Description:Device Manufactu rer - [employer]. Device Status Text - [id number]. Xience Stent 3.5 X 28 - [employer] [id number] Implanted:Qty: 1 on 10/24/2011 Cardiac Stent Kitchen Description:Device Manufactu rer - [employer]. Device Status Text - [id number]. Xience Stent 2.5 X 15 - [place] [id number] Implanted:Qty: 1 on 10/16/2012 Cardiac Stent Kitchen Description:Device Manufactu rer - [employer]. Device Status Text - [id number]. Sofi Xience 2.25 X 15 - [employer] [id number] Implanted:Qty: 1 on 10/16/2012 Cardiac Stent Kitchen Description:Device Manufactu rer - [employer]. Device Status Text - [id number]. Stent Inlay 7fr X 24cm - Fowler [id number] Implanted:Qty: 1 on 11/14/2013 Ureteral Stent C.[employer]Bard Description:Device Manufactu rer - Bard Patient Care Division. Device Status Text - [id number]. Procedures Procedure Name Priority Date/Time Associated Diagnosis [...] M.D. LAB BLOOD ADD-ON Performing Organization Address City/[facility]/ZIP Co de Phone Number [facility] [address], [place] [address], [facility] OWAT [facility] [place] [address] [place] [address] * Potassium (11/18/2022 10:31 AM CDT) Potassium, P 4.6 3.6 - 5.2 mmol/L 11/18/2022 1:29 PM CDT OWAT Blood (Blood, Venous) 11/18/2022 10:31 AM CDT 11/18/2022 12:58 PM CDT Gilberto Law M.D. LAB BLOOD ADD-ON Performing Organization Address City/[facility]/ZIP Co de Phone Number [facility] [address] [place] [address], [facility] [place] [address] [place] [address] * (ABNORMAL) Creatinine with Estimated GFR (11/18/2022 10:31 AM CDT) Creatinine 1.71(H) 0.59 - 1.04 mg/dL 11/18/2022 1:29 PM CDT OWAT Estimated GFR (eGFR) 30(L) >=60 mL/min/BSA 11/18/2022 1:29 PM CDT OWAT Comment: Estimated GFR calculated using the 2020 CKD_EPI creatinine equation. Blood (Blood, Venous) 11/18/2022 10:31 AM CDT 11/18/2022 12:58 PM CDT Gilberto Law M.D. LAB BLOOD ADD-ON [facility] [address] [place] [address], [place] OWAT [facility] [place] [address] [place] [address] * Hemoglobin A1c (05/27/2019 8:14 AM CDT) EXT Hemoglobin A1c, B 6.3 OTHER (SPECIFY IN SENIOR TECHNICAL WRITER) Blood (Blood, Venous) Ordering Provider External MWagner LAB BLOO D ADD-ON OTHER (SPECIFY IN SENIOR TECHNICAL WRITER) N/A from Last 3 Months or Most Recently Relevant to Health Maintenance Care Teams Card Maker Relationship Specialty Start Date End Date Elsewhere, Pcp PCP - General Family Medicine 07/20/17
--- OUTSIDE RECORDS SUMMARY | 2023-11-20 08:50 | XMS_ITS ---
Author Name Unknown Organization [facility] Address [address] [place] [address] Care Team Providers Care Hospital Ward Clerk Name Role Phone Unavailable Unavailable Unavailable Surgery Details Not on file Complications Check Surgery Details section. Procedure Estimated Blood Loss Check Surgery Details section. Procedure Findings Check Surgery Details section. Procedure Specimens Taken Check Surgery Details section.
== END 2023-11-16 10:05 | disposition home or self-care (01) ==
LOC: NFLDREF 11-20 08:48
PROVIDERS: PCP Internal Medicine; Referring Provider Internal Medicine; Visit Provider Internal Medicine
DX: E11.29 Type 2 diabetes mellitus with other diabetic kidney complication (principal); I10 Essential (primary) hypertension; I50.30 Unspecified diastolic (congestive) heart failure
CPT/HCPCS: 80048

== ENCOUNTER 2023-12-26 11:29 | Outpatient (CLI) | payer OTHER, SELFPAY | END 2023-12-26 11:30 | disposition home or self-care (01) | LOC: NFLDREF 11:30 | PROVIDERS: PCP Internal Medicine; Visit Provider Internal Medicine | DX: Z51.81 Encounter for therapeutic drug level monitoring (principal); Z79.01 Long term (current) use of anticoagulants | CPT/HCPCS: 85610 ==

== ENCOUNTER 2024-02-14 08:55 | Outpatient (CLI) | payer OTHER, SELFPAY ==
--- OUTSIDE RECORDS SUMMARY | 2024-02-16 05:06 | XMS_ITS ---
Author Organization [facility] Address [address] [place] [address] Care Team Providers Care Rn First Assistant Name Role Phone Unavailable Unavailable Unavailable Surgery Details Not on file Complications Check Surgery Details section. Procedure Estimated Blood Loss Check Surgery Details section. Procedure Findings Check Surgery Details section. Procedure Specimens Taken Check Surgery Details section.
--- OUTSIDE RECORDS SUMMARY | 2024-02-16 05:06 | XMS_ITS | Clinical Summary ---
Author Organization [facility] Address [address] [address] Care Team Providers Care Washer Engineer Name Role Phone Elsewhere, Pcp Primary Care Provider Unavailabl e Source Comments Patient records contain information from all sites at [facility]. For routine questions regarding patient records, call [phone] during business hours, M-F 8:00 AM - 5:00 PM Central Time. Record requests for emergency care only can be directed to [phone] at any time.[facility] Allergies Active Allergy Reactions Criticality Noted [...] pen injector injectionIndication s:Atherosclerotic Heart Disease Of [place] Coronary Artery Without Angina Pectoris INJECT 1ML UNDER THE SKIN EVERY 14 DAYS 2 mL 11 06/28/2023 Active Active Problems Problem Noted Date Diagnosed Date Hypertensive Heart Disease Without Heart Failure 01/05/2018 Hyperlipidemia 01/05/2018 Shortness Of Breath 01/05/2018 Thoracic Aortic Aneurysm Without Rupture Unspeci fied 01/05/2018 Acquired Aortic Valve Disorder 01/05/2018 Hypertension 11/12/2013 Atherosclerotic Heart Diseas e Of [place] Coronary Artery Without Angina Pectoris 11/12/2013 Diabetes [...] Comments Blood Pressure 100/62 07/12/2023 9:05 AM CHILD WELFARE COUNSELOR Pulse 50 07/12/2023 9:05 AM CHILD WELFARE COUNSELOR Temperature 36.2 ??C (97.1 ??F) 12/29/2022 10:30 AM C DT Respiratory Rate 24 05/12/2021 9:25 AM CDT Oxygen Saturation 96% 07/12/2023 9:01 AM CHILD WELFARE COUNSELOR room air Inhaled Oxygen Concentration - - Weight 99.8 kg (220 lb 0.3 oz) 07/12/2023 9:01 A M CHILD WELFARE COUNSELOR Height 162.3 cm (5' 3.9) 06/01/2022 9:37 [...] 11/19/2023 11/18/2022, 09/29, 08/04/2022, Additional history exists Influenza Vaccine (#1) 2024 , 09/10/2021, 06/11/2020, Additional history exists Office Visit for Blood Press ure Check / Re-check 07/12/2024 07/12/2023 DTaP,Tdap,and Td Vaccines (5 - Td or Tdap) 05/29/2029 05/29/2019, 06/30/2008, 04/07/2004, Additional history exists Pneumococcal vaccine (65+ years) Completed 10/29/19, 04/20/2010 Medical Devices Implanted Type Area Automotive Generator Repairer Device Identifier Shelf Expiration Date Model / Serial / Lot Vision Stent 3.5 X 28 - [place] [id number] Implanted:Qty: 1 on 06/17/2011 Cardiac Stent Kitchen Description:Device Manufactu rer - Kitchen Vascular. Device Status Text - [id number]. Xience Stent 3.5 X 28 - [place] [id number] Implanted:Qty: 1 on 10/24/2011 Cardiac Stent Kitchen Description:Device Manufactu rer - Kitchen Vascular. Device Status Text - [id number]. Xience Stent 2.5 X 15 - [place] [id number] Implanted:Qty: 1 on 10/16/2012 Cardiac Stent Kitchen Description:Device Manufactu rer - Kitchen Vascular. Device Status Text - [id number]. Sofi Xience 2.25 X 15 - Fowler [id number] Implanted:Qty: 1 on 10/16/2012 Cardiac Stent Kitchen Description:Device Manufactu rer - Kitchen Vascular. Device Status Text - [id number]. Stent Inlay 7fr X 24cm - Fowler [id number] Implanted:Qty: 1 on 11/14/2013 Ureteral Stent C.R.Bard Description:Device Manufactu rer - Bard Patient Care Division. Device Status Text - [id number]. Procedures Procedure Name Priority Date/Time Associated Diagnosis [...] M.D. LAB BLOOD ADD-ON Performing Organization Address City/[facility]/ZIP Co de Phone Number [facility] [address] [place] [address], [facility] OWAT [facility] [place] [address] [place] [address] * Potassium (11/18/2022 10:31 AM CDT) Potassium, P 4.6 3.6 - 5.2 mmol/L 11/18/2022 1:29 PM CDT OWAT Blood (Blood, Venous) 11/18/2022 10:31 AM CDT 11/18/2022 12:58 PM CDT Gilberto Law M.D. LAB BLOOD ADD-ON Performing Organization Address [facility] Co de Phone Number [facility] [address] [place] [address], [facility] OWAT [facility] [place] [address] [place] [address] * (ABNORMAL) Creatinine with Estimated GFR (11/18/2022 10:31 AM CDT) Creatinine 1.71(H) 0.59 - 1.04 mg/dL 11/18/2022 1:29 PM CDT OWAT Estimated GFR (eGFR) 30(L) >=60 mL/min/BSA 11/18/2022 1:29 PM CDT OWAT Comment: Estimated GFR calculated using the 2020 CKD_EPI creatinine equation. Blood (Blood, Venous) 11/18/2022 10:31 AM CDT 11/18/2022 12:58 PM CDT Gilberto Law M.D. LAB BLOOD ADD-ON [facility] [address] [place] [address], [place] OWAT [facility] [place] [address] [place] [address] * Hemoglobin A1c (05/27/2019 8:14 AM CDT) EXT Hemoglobin A1c, B 6.3 OTHER (SPECIFY IN INSTRUCTIONAL TECHNOLOGY INSTRUCTOR) Blood (Blood, Venous) Ordering Provider External Aimee LAB BLOO D ADD-ON OTHER (SPECIFY IN INSTRUCTIONAL TECHNOLOGY INSTRUCTOR) N/A from Last 3 Months or Most Recently Relevant to Health Maintenance Care Teams Washer Engineer Relationship Specialty Start Date End Date Elsewhere, Pcp PCP - General Family Medicine 07/20/17
--- OUTSIDE RECORDS SUMMARY | 2024-02-16 05:06 | XMS_ITS | Referral Summary ---
Author Organization [facility] Address [address] [place] [address] Care Team Providers Care Cost And Risk Analysis Manager Name Role Phone Elsewhere, Pcp Primary Care Provider Unavailabl e Source Comments Patient records contain information from all sites at [facility]. For routine questions regarding patient records, call [phone] during business hours, M-F 8:00 AM - 5:00 PM Central Time. Record requests for emergency care only can be directed to [phone] at any time.[facility] Allergies Active Allergy Reactions Criticality [...] pen injector injectionIndication s:Atherosclerotic Heart Disease Of [place] Coronary Artery Without Angina Pectoris INJECT 1ML UNDER THE SKIN EVERY 14 DAYS 2 mL 11 06/28/2023 Active Active Problems Problem Noted Date Diagnosed Date Hypertensive Heart Disease Without Heart Failure 01/05/2018 Hyperlipidemia 01/05/2018 Shortness Of Breath 01/05/2018 Thoracic Aortic Aneurysm Without Rupture Unspeci fied 01/05/2018 Acquired Aortic Valve Disorder 01/05/2018 Hypertension 11/12/2013 Atherosclerotic Heart Diseas e Of [place] Coronary Artery Without Angina Pectoris 11/12/2013 Diabetes [...] Comments Blood Pressure 100/62 07/12/2023 9:05 AM WELL PULLER HEAD Pulse 50 07/12/2023 9:05 AM WELL PULLER HEAD Temperature 36.2 ??C (97.1 ??F) 12/29/2022 10:30 AM C DT Respiratory Rate 24 05/12/2021 9:25 AM CDT Oxygen Saturation 96% 07/12/2023 9:01 AM WELL PULLER HEAD room air Inhaled Oxygen Concentration - - Weight 99.8 kg (220 lb 0.3 oz) 07/12/2023 9:01 A M WELL PULLER HEAD Height 162.3 cm (5' 3.9) 06/01/2022 9:37 AM CDT Body Mass Index 37.89 06/01/2022 9:37 AM CDT Plan of Treatment Not on file Medical Devices Implanted Type Area Supervisor Grain And Yeast Plants Device Identifier Shelf Expiration Date Model / Serial / Lot Vision Stent 3.5 X 28 - [place] [id number] Implanted:Qty: 1 on 06/17/2011 Cardiac Stent Kitchen Description:Device Manufactu rer - Kitchen Vascular. Device Status Text - [id number]. Xience Stent 3.5 X 28 - [place] [id number] Implanted:Qty: 1 on 10/24/2011 Cardiac Stent Kitchen Description:Device Manufactu rer - Kitchen Vascular. Device Status Text - [id number]. Xience Stent 2.5 X 15 - Fowler [id number] Implanted:Qty: 1 on 10/16/2012 Cardiac Stent Kitchen Description:Device Manufactu rer - Kitchen Vascular. Device Status Text - [id number]. Sofi Xience 2.25 X 15 - Fowler [id number] Implanted:Qty: 1 on 10/16/2012 Cardiac Stent Kitchen Description:Device Manufactu rer - Kitchen Vascular. Device Status Text - [id number]. Stent Inlay 7fr X 24cm - Fowler [id number] Implanted:Qty: 1 on 11/14/2013 Ureteral Stent C.R.Bard Description:Device Manufactu rer - Bard Patient Care Division. Device Status Text - [id number]. Procedures Procedure Name Priority Date/Time Associated Diagnosis [...] M.D. LAB BLOOD ADD-ON Performing Organization Address City/[facility]/ZIP Co de Phone Number [facility] [address], [place] [address], [facility] OWAT [facility] [place] [address] [place] [address] * Potassium (11/18/2022 10:31 AM CDT) Potassium, P 4.6 3.6 - 5.2 mmol/L 11/18/2022 1:29 PM CDT OWAT Blood (Blood, Venous) 11/18/2022 10:31 AM CDT 11/18/2022 12:58 PM CDT Gilberto Law M.D. LAB BLOOD ADD-ON Performing Organization Address City/[facility]/ZIP Co de Phone Number [facility] [address], [place] [address], [facility] OWAT [facility] [place] [address] [place] [address] * (ABNORMAL) Creatinine with Estimated GFR (11/18/2022 10:31 AM CDT) Creatinine 1.71(H) 0.59 - 1.04 mg/dL 11/18/2022 1:29 PM CDT OWAT Estimated GFR (eGFR) 30(L) >=60 mL/min/BSA 11/18/2022 1:29 PM CDT OWAT Comment: Estimated GFR calculated using the 2020 CKD_EPI creatinine equation. Blood (Blood, Venous) 11/18/2022 10:31 AM CDT 11/18/2022 12:58 PM CDT Gilberto Law M.D. LAB BLOOD ADD-ON [facility] [address] [place] [address], [place] OWAT [facility] [place] [address] [place] [address] * Hemoglobin A1c (05/27/2019 8:14 AM CDT) EXT Hemoglobin A1c, B 6.3 OTHER (SPECIFY IN JOINT TERMINAL ATTACK CONTROLLER) Blood (Blood, Venous) Ordering Provider External MWagner LAB BLOO D ADD-ON OTHER (SPECIFY IN JOINT TERMINAL ATTACK CONTROLLER) N/A from Last 3 Months or Most Recently Relevant to Health Maintenance Care Teams Cost And Risk Analysis Manager Relationship Specialty Start Date End Date Elsewhere, Pcp PCP - General Family Medicine 07/20/17
== END 2024-02-14 08:56 | disposition home or self-care (01) ==
LOC: NFLDREF 02-16 05:04
PROVIDERS: PCP Internal Medicine; Referring Provider Internal Medicine; Visit Provider Internal Medicine
DX: Z51.81 Encounter for therapeutic drug level monitoring (principal); Z79.01 Long term (current) use of anticoagulants
CPT/HCPCS: 85610

== ENCOUNTER 2024-05-16 09:00 | Outpatient (CLI) | payer OTHER, SELFPAY ==
--- OUTSIDE RECORDS SUMMARY | 2024-05-16 09:02 | XMS_ITS | Clinical Summary ---
Author Organization [facility] Address [address] [place] [address] Care Team Providers Care Mapping Analyst Name Role Phone Elsewhere, Pcp Primary Care Provider Unavailabl e Source Comments Patient records contain information from all sites at [facility]. For routine questions regarding patient records, call [phone] during business hours, M-F 8:00 AM - 5:00 PM Central Time. Record requests for emergency care only can be directed to [phone] at any time.[facility] Allergies Active Allergy Reactions Criticality Noted Date Comments Adhesive Tape-Silicones Hives (Reselect Reaction) 01/05/2018 Enoxaparin Rash 10/15/2012 Heparin Hives (Reselect Reaction) 01/05/2018 Latex Hives (Reselect Reaction) 01/05/2018 Medications isosorbide mononitrate (IMDUR) 30 mg 24 hr [...] strip TEST TWO TIMES A DAY 3 9 Active lancets test twice a day 9 Active nitroglycerin (NITROSTAT) 0.[address] 1 tablet under the tongue as needed. 3 Active ezetimibe (ZETIA) 10 mg tablet Take 1 tablet (10 mg total) by mouth daily. Additional refills with PCP. 90 tablet 1 0 Active losartan (COZAAR) 100 mg tablet Take 100 mg by mouth daily. 1 Active furosemide (LASIX) 40 mg tablet Take 40 mg by mouth daily. 2 Active Accu-Chek Guide test strips strips TEST TWO TIMES A DAY 2 Active amoxicillin (AMOXIL) 500 mg capsule Take 2,000 mg by mouth once. TAKE 4 CAPSULES BY MOUTH 1 HOUR BEFORE DENTAL APPOINTMENT 2 Active hydroCHLOROthiaz nancy (MICROZIDE) 12.5 mg capsule Take 12.5 mg by mouth daily. 2 Active metFORMIN XR (GLUCOPHAGE-XR) 500 mg 24 hr tablet TAKE TWO TABLETS BY MOUTH TWICE A DAY 2 Active Repatha SureClick 140 mg/mL pen injector injectionIndicat ions:Atheroscler otic Heart Disease Of [place] Coronary Artery Without Angina Pectoris INJECT 1ML UNDER THE SKIN EVERY 14 DAYS 2 mL 11 3 Active Active Problems Problem Noted Date Diagnosed Date Hypertensive Heart Disease Without Heart Failure 01/05/2018 Hyperlipidemia 01/05/2018 Shortness Of Breath 01/05/2018 Thoracic Aortic Aneurysm Without Rupture Unspeci fied 01/05/2018 Acquired Aortic Valve Disorder 01/05/2018 Hypertension 11/12/2013 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/2013 Diabetes [...] Recorded Dental: Regular Dentist Unknown 09/22/19 21 Comments Unknown Sex and Gender Information Value Date Recorded Sex Assigned at Not on file Legal Sex Female 3:35 PM COUPON AND BOND COLLECTION CLERK Gender Identity Not on file Sexual Orientation Not on file Last Filed Vital Signs Vital Sign Reading Time Taken Comments Blood Pressure 100/62 07/12/2023 9:05 AM COUPON AND BOND COLLECTION CLERK Pulse 50 07/12/2023 9:05 AM COUPON AND BOND COLLECTION CLERK Temperature 36.2 ??C (97.1 ??F) 12/29/2022 10:30 AM C DT Respiratory Rate 24 05/12/2021 9:25 AM CDT Oxygen Saturation 96% 07/12/2023 9:01 AM COUPON AND BOND COLLECTION CLERK room air Inhaled Oxygen Concentration - - Weight 99.8 kg (220 lb 0.3 oz) 07/12/2023 9:01 A M COUPON AND BOND COLLECTION CLERK Height 162.3 cm (5' 3.9) 06/01/2022 9:37 [...] 04/27/2015 03/02/2015 Hemoglobin A1C 11/26/2019 05/27/2019, 10/20/2011 RSV vaccine - (32-3 6 weeks) or 60+ years (1 - 1-dose 75+ series) 12/23/2019 Depression Screening (Annual PHQ-2) 07/31/2023 Fall Risk Screen (Annual) 07/31/2023 Creatinine Level (Kidney Fun ction Test) 11/19/2023 11/18/2022, 10/19/2022, 08/04/2022, Additional history exists Potassium Level 11/19/2023 11/18/2022, 09/29, 08/04/2022, Additional history exists Sodium Level 11/19/2023 11/18/2022, 09/29, 08/04/2022, Additional history exists COVID-19 Vaccine (2023-2 5 season) 2024 05/06/2021, 10/16/2020, 09/24/2020 Influenza Vaccine (#1) 2024 3, 09/10/2021, 06/11/2020, Additional history exists Office Visit for Blood Press ure Check / Re-check 07/12/2024 07/12/2023 DTaP,Tdap,and Td Vaccines (5 - Td or Tdap) 05/29/2029 05/29/2019, 06/30/2008, 04/07/2004, Additional history exists Pneumococcal vaccine (65+ years) Completed 10/29/19 15, 04/20/2010 Medical Devices Implanted Type Area Composing Room Machinist Apprentice Device Identifier Shelf Expiration Date Model / Serial / Lot Vision Stent 3.5 X 28 - [place] [id number] Implanted:Qty: 1 on 06/17/2011 Cardiac Stent Kitchen Description:Device Manufactu rer - Kitchen Vascular. Device Status Text - [id number]. Xience Stent 3.5 X 28 - Fowler [id number] Implanted:Qty: 1 on 10/24/2011 Cardiac Stent Kitchen Description:Device Manufactu rer - Kitchen Vascular. Device Status Text - [id number]. Xience Stent 2.5 X 15 - [place] [id number] Implanted:Qty: 1 on 10/16/2012 Cardiac Stent Kitchen Description:Device Manufactu rer - Kitchen Vascular. Device Status Text - [id number]. Sofi Xience 2.25 X 15 - Fowler [id number] Implanted:Qty: 1 on 10/16/2012 Cardiac Stent Kitchen Description:Device Manufactu rer - Kitchen Vascular. Device Status Text - [id number]. Stent Inlay 7fr X 24cm - Fowler [id number] Implanted:Qty: 1 on 11/14/2013 Ureteral Stent C.R.Bard Description:Device Manufactu rer - Bard Patient Care Division. Device Status Text - [id number]. Procedures Procedure Name Priority Date/Time Associated Diagnosis [...] CDT Gilberto Law M.D. LAB BLOOD ADD-ON Final Res ult Performing Organization Address City/[facility]/ZIP Co de Phone Number [facility] [address] [place] [address], [facility] OWAT [facility] [place] [address] [place] [address] * Potassium (11/18/2022 10:31 AM CDT) Potassium, P 4.6 3.6 - 5.2 mmol/L 11/18/2022 1:29 PM CDT OWAT Blood (Blood, Venous) 11/18/2022 10:31 AM CDT 11/18/2022 12:58 PM CDT Gilberto Law M.D. LAB BLOOD ADD-ON Final Res ult [facility] [address] [place] [address], [place] OWAT [facility] [place] [address] [place] [address] * (ABNORMAL) Creatinine with Estimated GFR (11/18/2022 10:31 AM CDT) Creatinine 1.71(H) 0.59 - 1.04 mg/dL 11/18/2022 1:29 PM CDT OWAT Estimated GFR (eGFR) 30(L) >=60 mL/min/BSA 11/18/2022 1:29 PM CDT OWAT Comment: Estimated GFR calculated using the 2020 CKD_EPI creatinine equation. Blood (Blood, Venous) 11/18/2022 10:31 AM CDT 11/18/2022 12:58 PM CDT us Gilberto Law M.D. LAB BLOOD ADD-ON Final Res ult [facility] [address] [place] [address], [place] OWAT [facility] [place] [address] [place] [address] * Hemoglobin A1c (05/27/2019 8:14 AM CDT) EXT Hemoglobin A1c, B 6.3 OTHER (SPECIFY IN SITE FOREMAN) Blood (Blood, Venous) us Ordering Provider Randal Yu LAB BLOOD ADD-ON Final Result Performing Organization Address City/State/[facility] Co de Phone Number OTHER (SPECIFY IN SITE FOREMAN) N/A from Last 3 Months or Most Recently Relevant to Health Maintenance Insurance FOR [employer] Care Teams Mapping Analyst Relationship Specialty Start Date End Date Elsewhere, Pcp PCP - General Family Medicine 07/20/17
--- OUTSIDE RECORDS SUMMARY | 2024-05-16 09:02 | XMS_ITS | Referral Summary ---
Author Organization [facility] Address [address] [place] [address] Care Team Providers Care Db2 Dba Name Role Phone Elsewhere, Pcp Primary Care Provider Unavailabl e Source Comments Patient records contain information from all sites at [facility]. For routine questions regarding patient records, call [phone] during business hours, M-F 8:00 AM - 5:00 PM Central Time. Record requests for emergency care only can be directed to [phone] at any time.[facility] Allergies Active Allergy Reactions Criticality Noted [...] injector injectionIndicat ions:Atheroscler otic Heart Disease Of [place] Coronary Artery Without Angina Pectoris INJECT 1ML UNDER THE SKIN EVERY 14 DAYS 2 mL 11 3 Active Active Problems Problem Noted Date Diagnosed Date Hypertensive Heart Disease Without Heart Failure 01/05/2018 Hyperlipidemia 01/05/2018 Shortness Of Breath 01/05/2018 Thoracic Aortic Aneurysm Without Rupture Unspeci fied 01/05/2018 Acquired Aortic Valve Disorder 01/05/2018 Hypertension 11/12/2013 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/12/2013 Diabetes [...] on file Legal Sex Female 3:35 PM DINKEY OPERATOR SLATE Gender Identity Not on file Sexual Orientation Not on file Last Filed Vital Signs Vital Sign Reading Time Taken Comments Blood Pressure 100/62 07/12/2023 9:05 AM DINKEY OPERATOR SLATE Pulse 50 07/12/2023 9:05 AM DINKEY OPERATOR SLATE Temperature 36.2 ??C (97.1 ??F) 12/29/2022 10:30 AM C DT Respiratory Rate 24 05/12/2021 9:25 AM CDT Oxygen Saturation 96% 07/12/2023 9:01 AM DINKEY OPERATOR SLATE room air Inhaled Oxygen Concentration - - Weight 99.8 kg (220 lb 0.3 oz) 07/12/2023 9:01 A M DINKEY OPERATOR SLATE Height 162.3 cm (5' 3.9) 06/01/2022 9:37 AM CDT Body Mass Index 37.89 06/01/2022 9:37 AM CDT Plan of Treatment Not on file Medical Devices Implanted Type Area Welder Explosion Device Identifier Shelf Expiration Date Model / Serial / Lot Vision Stent 3.5 X 28 - [place] [id number] Implanted:Qty: 1 on 06/17/2011 Cardiac Stent Kitchen Description:Device Manufactu KabeExploration - Kitchen Vascular. Device Status Text - [id number]. Xience Stent 3.5 X 28 - [place] [id number] Implanted:Qty: 1 on 10/24/2011 Cardiac Stent Kitchen Description:Device Manufactu rer - Kitchen Vascular. Device Status Text - [id number]. Xience Stent 2.5 X 15 - [place] [id number] Implanted:Qty: 1 on 10/16/2012 Cardiac Stent Kitchen Description:Device Manufactu rer - Kitchen Vascular. Device Status Text - [id number]. Sofi Xience 2.25 X 15 - Fowler [id number] Implanted:Qty: 1 on 10/16/2012 Cardiac Stent Kitchen Description:Device Manufactu rer - Kitchen Vascular. Device Status Text - [id number]. Stent Inlay 7fr X 24cm - Fowler [id number] Implanted:Qty: 1 on 11/14/2013 Ureteral Stent C.R.Bard Description:Device Manufactu rer - Bard Patient Care Division. Device Status Text - [id number]. Procedures Procedure Name Priority Date/Time Associated Diagnosis [...] ADD-ON Final Res ult Performing Organization Address City/[facility]/ZIP Co de Phone Number [facility] [address] [place] [address], [place] OW[place] [facility] [place] [address] [place] [address] * Potassium (11/18/2022 10:31 AM CDT) Potassium, P 4.6 3.6 - 5.2 mmol/L 11/18/2022 1:29 PM CDT OWAT Blood (Blood, Venous) 11/18/2022 10:31 AM CDT 11/18/2022 12:58 PM CDT us Gilberto Law M.D. LAB BLOOD ADD-ON Final Res ult [facility] [address] [place] [address], [place] OW[place] [facility] [place] [address] [place] [address] * (ABNORMAL) Creatinine with Estimated GFR (11/18/2022 [...] ADD-ON Final Res ult Performing Organization Address City/[facility]/ZIP Co de Phone Number [facility] [address] [place] [address], [place] OW[place] [facility] [place] [address] [place] [address] * Hemoglobin A1c (05/27/2019 8:14 AM CDT) EXT Hemoglobin A1c, B 6.3 OTHER (SPECIFY IN RAIL SIGNAL MECHANIC) Blood (Blood, Venous) us Ordering Provider Randal Yu LAB BLOOD ADD-ON Final Result Performing Organization Address City/[facility]/ZIP Co de Phone Number OTHER (SPECIFY IN RAIL SIGNAL MECHANIC) N/A from Last 3 Months or Most Recently Relevant to Health Maintenance Insurance [employer] Care Teams Db2 Dba Relationship Specialty Start Date End Date Elsewhere, Pcp PCP - General Family Medicine 07/20/17
--- OUTSIDE RECORDS SUMMARY | 2024-05-16 09:03 | XMS_ITS ---
Author Organization [facility] Address [address] [place] [address] Care Team Providers Care Tank Builder Helper Name Role Phone Unavailable Unavailable Unavailable Surgery Details Not on file Complications Check Surgery Details section. Procedure Estimated Blood Loss Check Surgery Details section. Procedure Findings Check Surgery Details section. Procedure Specimens Taken Check Surgery Details section.
--- NOTE | 2024-05-16 09:15 | CRLHL7_ITS ---
For Patients: As a result of the Cures Act, medical imaging exams and procedure reports are released immediately into your electronic medical record. You may view this report before your referring provider. If you have questions, please contact your health care provider. BILATERAL SCREENING MAMMOGRAM WITH COMPUTER-AIDED DETECTION AND TOMOSYNTHESIS TECHNIQUE: CC and MLO views were obtained. These mammographic images have been obtained using full-field digital technique. These mammographic images were interpreted with the benefit of computer-aided detection. Breast Tomosynthesis was used in this interpretation. COMPARISON FILM: 05/15/23, 05/06/22, 01/04/21. FINDINGS: There are scattered areas of fibroglandular density IMPRESSION: There is no radiographic evidence for malignancy. ASSESSMENT: BI-RADS Category 2: Benign RECOMMENDATION: Routine screening mammogram in 1 year. A lay language report of this examination will be provided to the patient. Geovanny Brady M.D. Diagnostic Radiologist [email or web address] VINCENT/ani Transcribed: 2:39 p.mDemetria law/Dictated by: Geovanny Brady MD @ 05/21/2024 10:43:00 AM (Electronically Signed)
== END 2024-05-16 09:01 | disposition home or self-care (01) ==
LOC: MAMMO 09:01
PROVIDERS: PCP Internal Medicine; Visit Provider Internal Medicine
DX: Z12.31 Encounter for screening mammogram for malignant neoplasm of breast (principal)
CPT/HCPCS: 77063; 77067

== ENCOUNTER 2024-06-03 09:37 | Outpatient (CLI) | payer OTHER, SELFPAY ==
--- OUTSIDE RECORDS SUMMARY | 2024-06-06 07:35 | XMS_ITS ---
Author Organization [facility] Address [address] [place] [address] Care Team Providers Care Pipeline Engineer Name Role Phone Unavailable Unavailable Unavailable Surgery Details Not on file Complications Check Surgery Details section. Procedure Estimated Blood Loss Check Surgery Details section. Procedure Findings Check Surgery Details section. Procedure Specimens Taken Check Surgery Details section.
--- OUTSIDE RECORDS SUMMARY | 2024-06-06 07:35 | XMS_ITS | Referral Summary ---
Author Organization [facility] Address [address] [place] [id number] Care Team Providers Care Oil Rig Driller Name Role Phone Elsewhere, Pcp Primary Care Provider Unavailabl e Source Comments Patient records contain information from all sites at [facility]. For routine questions regarding patient records, call [phone] during business hours, M-F 8:00 AM - 5:00 PM Central Time. Record requests for emergency care only can be directed to [phone] at any time.[facility] Allergies Active Allergy Reactions Criticality Noted Date [...] injector injectionIndicat ions:Atheroscler otic Heart Disease Of [place] Coronary Artery Without Angina Pectoris INJECT 1ML UNDER THE SKIN EVERY 14 DAYS 2 mL 11 3 Active Active Problems Problem Noted Date Diagnosed Date Hypertensive Heart Disease Without Heart Failure 01/05/2018 Hyperlipidemia 01/05/2018 Shortness Of Breath 01/05/2018 Thoracic Aortic Aneurysm Without Rupture Unspeci fied 01/05/2018 Acquired Aortic Valve Disorder 01/05/2018 Hypertension 11/12/2013 Atherosclerotic Heart Diseas e Of [place] Coronary Artery Without Angina Pectoris 11/12/2013 Diabetes [...] on file Legal Sex Female 3:35 PM LEAD RAMP SERVICE MAN Gender Identity Not on file Sexual Orientation Not on file Last Filed Vital Signs Vital Sign Reading Time Taken Comments Blood Pressure 100/62 07/12/2023 9:05 AM LEAD RAMP SERVICE MAN Pulse 50 07/12/2023 9:05 AM LEAD RAMP SERVICE MAN Temperature 36.2 ??C (97.1 ??F) 12/29/2022 10:30 AM C DT Respiratory Rate 24 05/12/2021 9:25 AM CDT Oxygen Saturation 96% 07/12/2023 9:01 AM LEAD RAMP SERVICE MAN room air Inhaled Oxygen Concentration - - Weight 99.8 kg (220 lb 0.3 oz) 07/12/2023 9:01 A M LEAD RAMP SERVICE MAN Height 162.3 cm (5' 3.9) 06/01/2022 9:37 AM CDT Body Mass Index 37.89 06/01/2022 9:37 AM CDT Plan of Treatment Not on file Medical Devices Implanted Type Area Office System Analyst Device Identifier Shelf Expiration Date Model / Serial / Lot Vision Stent 3.5 X 28 - [employer] [id number] Implanted:Qty: 1 on 06/17/2011 Cardiac Stent Kitchen Description:Device Manufactu [employer] - [employer] V[employer]. Device Status Text - [id number]. Xience Stent 3.5 X 28 - [employer] [id number] Implanted:Qty: 1 on 10/24/2011 Cardiac Stent Kitchen Description:Device Manufactu rer - [employer]. Device Status Text - [id number]. Xience Stent 2.5 X 15 - Fowler [id number] Implanted:Qty: 1 on 10/16/2012 Cardiac Stent Kitchen Description:Device Manufactu rer - [employer]. Device Status Text - [id number]. Sofi Xience 2.25 X 15 - Fowler [id number] Implanted:Qty: 1 on 10/16/2012 Cardiac Stent Kitchen Description:Device Manufactu rer - [employer]. Device Status Text - [id number]. Stent Inlay 7fr X 24cm - Fowler [id number] Implanted:Qty: 1 on 11/14/2013 Ureteral Stent C.[employer].Bard Description:Device Manufactu rer - Bard Patient Care Division. Device Status Text - [id number]. Procedures Procedure Name Priority Date/Time Associated Diagnosis [...] ADD-ON Final Res ult Performing Organization Address City/[facility]/ZIP Co de Phone Number [facility] [address] [place] [address], [place] OW[place] [facility] [place] [address] [place] [address] * Potassium (11/18/2022 10:31 AM CDT) Potassium, P 4.6 3.6 - 5.2 mmol/L 11/18/2022 1:29 PM CDT OWAT Blood (Blood, Venous) 11/18/2022 10:31 AM CDT 11/18/2022 12:58 PM CDT us Gilberto Law M.D. LAB BLOOD ADD-ON Final Res ult [facility] [address] [place] [address], [place] [facility] [place] [address] [place] [address] * (ABNORMAL) Creatinine with Estimated GFR (11/18/2022 [...] ADD-ON Final Res ult Performing Organization Address City/[facility]/ZIP Co de Phone Number [facility] [address] [place] [address], [place] OW[place] [facility] [place] [address] [place] [address] * Hemoglobin A1c (05/27/2019 8:14 AM CDT) EXT Hemoglobin A1c, B 6.3 OTHER (SPECIFY IN CUSTOMER QUALITY ENGINEER) Blood (Blood, Venous) us Ordering Provider Randal Yu LAB BLOOD ADD-ON Final Result Performing Organization Address City/[facility]/ZIP Co de Phone Number OTHER (SPECIFY IN CUSTOMER QUALITY ENGINEER) N/A from Last 3 Months or Most Recently Relevant to Health Maintenance Insurance [employer] Care Teams Oil Rig Driller Relationship Specialty Start Date End Date Elsewhere, Pcp PCP - General Family Medicine 07/20/17
--- OUTSIDE RECORDS SUMMARY | 2024-06-06 07:35 | XMS_ITS | Clinical Summary ---
Author Organization [facility] Address [address] [place] [address] Care Team Providers Care Gallery Or Museum Attendant Name Role Phone Elsewhere, Pcp Primary Care Provider Unavailabl e Source Comments Patient records contain information from all sites at [facility]. For routine questions regarding patient records, call [phone] during business hours, M-F 8:00 AM - 5:00 PM Central Time. Record requests for emergency care only can be directed to [phone] at any time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 INJECT 1ML UNDER THE SKIN EVERY 14 DAYS 2 mL 11 3 Active Active Problems Problem Noted Date Diagnosed Date Hypertensive Heart Disease Without Heart Failure 01/05/2018 Hyperlipidemia 01/05/2018 Shortness Of Breath 01/05/2018 Thoracic Aortic Aneurysm Without Rupture Unspeci fied 01/05/2018 Acquired Aortic Valve Disorder 01/05/2018 Hypertension 11/12/2013 Atherosclerotic Heart Diseas e Of [place] Coronary Artery Without Angina Pectoris 11/12/2013 Diabetes [...] on file Legal Sex Female 3:35 PM STOCK CHASER Gender Identity Not on file Sexual Orientation Not on file Last Filed Vital Signs Vital Sign Reading Time Taken Comments Blood Pressure 100/62 07/12/2023 9:05 AM STOCK CHASER Pulse 50 07/12/2023 9:05 AM STOCK CHASER Temperature 36.2 ??C (97.1 ??F) 12/29/2022 10:30 AM C DT Respiratory Rate 24 05/12/2021 9:25 AM CDT Oxygen Saturation 96% 07/12/2023 9:01 AM STOCK CHASER room air Inhaled Oxygen Concentration - - Weight 99.8 kg (220 lb 0.3 oz) 07/12/2023 9:01 A M STOCK CHASER Height 162.3 cm (5' 3.9) 06/01/2022 9:37 AM CDT Body Mass Index 37.89 06/01/2022 9:37 AM CDT Plan of Treatment Health Maintenance Due Date Last Done Comments Diabetic Office Visit with Foot Exam 1945 Dilated Eye Exam 1945 Hepatitis C Screening 1945 Urine Albumin 1945 Hepatitis B Vaccines (1 of 3 - Risk 3-dose series) 2004 Zoster Vaccines (2 of 3) 04/27/2015 03/02/2015 Hemoglobin A1C 11/26/2019 05/27/2019, 10/20/2011 RSV vaccine - (32-36 weeks) or 60+ years (1 - 1-dose 75+ series) 12/23/2019 Depression Screening (Annual PHQ-2) 07/31/2023 Fall Risk Screen (Annual) 07/31/2023 Creatinine Level (Kidney Function Test) 11/19/2023 11/18/2022, 10/19/2022, 08/04/2022, Additional history exists Potassium Level 11/19/2023 11/18/2022, 09/29, 08/04/2022, Additional history exists Sodium Level 11/19/2023 11/18/2022, 09/29, 08/04/2022, Additional history exists COVID-19 Vaccine ( season) 2024 05/06/2021, 10/16/2020, 09/24/2020 Influenza Vaccine (#1) 2024 3, 09/10/2021, 06/11/2020, Additional history exists Office Visit for Blood Pressure Check / Re-check 07/12/2024 07/12/2023 DTaP,Tdap,and Td Vaccines (5 - Td or Tdap) 05/29/2029 05/29/2019, 06/30/2008, 04/07/2004, Additional history exists Pneumococcal vaccine (65+ years) Completed 10/28/2014, 04/20/2010 IPV Vaccines Aged Out No longer eligi ble based on patient's age to complete this topic Medical Devices Implanted Type Area Landscape Horticulture Instructor Device Identifier Shelf Expiration Date Model / Serial / Lot Vision Stent 3.5 X 28 - [employer] [id number] Implanted:Qty: 1 on 06/17/2011 Cardiac Stent Kitchen Description:Device Manufactu rer - [employer]. Device Status Text - [id number]. Xience Stent 3.5 X 28 - [place] [id number] Implanted:Qty: 1 on 10/24/2011 Cardiac Stent Kitchen Description:Device Manufactu rer - [employer]. Device Status Text - [id number]. Xience Stent 2.5 X 15 - [employer] [id number] Implanted:Qty: 1 on 10/16/2012 Cardiac Stent Kitchen Description:Device Manufactu rer - [employer]. Device Status Text - [id number]. Sofi Xience 2.25 X 15 - Fowler [id number] Implanted:Qty: 1 on 10/16/2012 Cardiac Stent Kitchen Description:Device Manufactu rer - [employer]. Device Status Text - [id number]. Stent Inlay 7fr X 24cm - Fowler [id number] Implanted:Qty: 1 on 11/14/2013 Ureteral Stent C.R.Bard Description:Device Manufactu [facility] - Bard Patient Care Division. Device Status Text - [id number]. Procedures Procedure Name Priority Date/Time Associated Diagnosis [...] ADD-ON Final Res ult Performing Organization Address City/[facility]/ZIP Co de Phone Number [facility] [address] [place] [address], [facility] OWAT [facility] [place] [address] [place] [id number] * Potassium (11/18/2022 10:31 AM CDT) Potassium, P 4.6 3.6 - 5.2 mmol/L 11/18/2022 1:29 PM CDT OWAT Blood (Blood, Venous) 11/18/2022 10:31 AM CDT 11/18/2022 12:58 PM CDT Gilberto Law M.D. LAB BLOOD ADD-ON Final Res ult [facility] [address] [place] [address], [place] [facility] [place] [address] [place] [address] * (ABNORMAL) Creatinine with Estimated GFR (11/18/2022 [...] ADD-ON Final Res ult Performing Organization Address City/[facility]/ZIP Co de Phone Number [facility] [address] [place] [address], [place] [facility] [place] [address] [place] [address] * Hemoglobin A1c (05/27/2019 8:14 AM CDT) EXT Hemoglobin A1c, B 6.3 OTHER (SPECIFY IN HYDROGEN POWER PLANT ENGINEER) Blood (Blood, Venous) us Ordering Provider Randal Yu LAB BLOOD ADD-ON Final Result Performing Organization Address City/[facility]/ZIP Co de Phone Number OTHER (SPECIFY IN HYDROGEN POWER PLANT ENGINEER) N/A from Last 3 Months or Most Recently Relevant to Health Maintenance Insurance [employer] Care Teams Gallery Or Museum Attendant Relationship Specialty Start Date End Date Elsewhere, Pcp PCP - General Family Medicine 07/20/17
== END 2024-06-03 09:38 | disposition home or self-care (01) ==
LOC: NFLDREF 06-06 07:33
PROVIDERS: PCP Internal Medicine; Referring Provider Internal Medicine; Visit Provider Internal Medicine
DX: E11.9 Type 2 diabetes mellitus without complications (principal); M85.80 Other specified disorders of bone density and structure, unspecified site; I10 Essential (primary) hypertension; E78.5 Hyperlipidemia, unspecified; E66.01 Morbid (severe) obesity due to excess calories; R80.9 Proteinuria, unspecified; Z95.2 Presence of prosthetic heart valve
CPT/HCPCS: 80053; 80061; 82043; 82306; 82570

== ENCOUNTER 2024-11-27 09:30 | Outpatient (CLI) | payer OTHER, SELFPAY | END 2024-11-27 09:31 | disposition home or self-care (01) | LOC: NFLDREF 11-29 23:30 | PROVIDERS: PCP Internal Medicine; Referring Provider Internal Medicine; Visit Provider Internal Medicine | DX: E78.5 Hyperlipidemia, unspecified (principal); E11.9 Type 2 diabetes mellitus without complications; Z79.84 Long term (current) use of oral hypoglycemic drugs | CPT/HCPCS: 80053; 80061 ==

== ENCOUNTER 2025-06-03 11:31 | Outpatient (CLI) | payer OTHER, SELFPAY | END 2025-06-03 11:32 | disposition home or self-care (01) | LOC: NFLDREF 06-06 07:34 | PROVIDERS: PCP Internal Medicine; Referring Provider Internal Medicine; Visit Provider Internal Medicine | DX: E11.9 Type 2 diabetes mellitus without complications (principal); M85.80 Other specified disorders of bone density and structure, unspecified site; I50.30 Unspecified diastolic (congestive) heart failure; E66.01 Morbid (severe) obesity due to excess calories; E11.22 Type 2 diabetes mellitus with diabetic chronic kidney disease; I12.9 Hypertensive chronic kidney disease with stage 1 through stage 4 chronic kidney disease, or unspecified chronic kidney disease; N18.9 Chronic kidney disease, unspecified | CPT/HCPCS: 80053; 80061; 82043; 82306; 82570 ==

== ENCOUNTER 2025-06-10 12:46 | Outpatient (CLI) | payer OTHER, SELFPAY ==
--- NOTE | 2025-06-10 13:00 | CRLHL7_ITS ---
For Patients: As a result of the Century Cures Act, medical imaging exams and procedure reports are released immediately into your electronic medical record. You may view this report before your referring provider. If you have questions, please contact your health care provider. INDICATION: BILATERAL SCREENING MAMMOGRAM, ASYMPTOMATIC 79 Y/O FEMALE COMPARISON: 05/16/2024, 05/15/2023, 05/06/2022 TECHNIQUE: Digital mammogram in CC and MLO projections including computer-aided detection (CAD) and tomosynthesis. BREAST COMPOSITION: There are scattered areas of fibroglandular density. FINDINGS: No suspicious findings. ASSESSMENT: BI-RADS 2 Benign RECOMMENDATION: Annual screening mammogram. A lay language report of this examination will be provided to the patient. Dictated by: Geovanny Brady MD @ 06/11/2025 08:31:25 (Electronically Signed)
== END 2025-06-10 12:47 | disposition home or self-care (01) ==
LOC: MAMMO 12:47
PROVIDERS: PCP Internal Medicine; Visit Provider Internal Medicine
DX: Z12.31 Encounter for screening mammogram for malignant neoplasm of breast (principal)
CPT/HCPCS: 77063; 77067

== ENCOUNTER 2025-07-04 10:46 | Outpatient (CLI) | payer OTHER, SELFPAY ==
--- NOTE | 2025-07-04 11:00 | CRLHL7_ITS ---
For Patients: As a result of the Century Cures Act, medical imaging exams and procedure reports are released immediately into your electronic medical record. You may view this report before your referring provider. If you have questions, please contact your health care provider. Indication: Pulmonary fibrosis, unspecified Technique: Noncontrast CT chest Please note that all CT scans at this facility use dose modulation, iterative reconstruction, and/or weight-based dosing when appropriate to reduce radiation dose to as low as reasonably achievable. Comparison: Chest x-ray 06/23/2025, CT 04/22/2010 Findings: Chronic low-density nodule in the thyroid measures 1.3 cm which does not require follow-up. Similar size of the ascending aorta. Status post aortic valve replacement. No pericardial or pleural effusion. Chronic small hiatal hernia measures 2.8 cm. Nonobstructing stone in the left renal pelvis measures 1.1 cm. Multiple calcified gallstones are present, chronic, measuring up to 1.1 cm. Atherosclerotic changes in the aorta. Mediastinal adenopathy with numerous lymph nodes measuring up to 1.2 cm, new from the prior CT scan. Extensive bilateral interlobular septal thickening with primarily cystic bronchiectasis, predominantly involving the left lower lobe with extensive additional involvement of the left upper lobe. Moderately severe involvement of the right upper lobe with relative preservation of the right middle lobe. Moderate involvement of the right lower lobe. Chronic nodule within the right lateral lung which measures 7 millimeters. No fracture. Intact median sternotomy wires. Impression: Extensive bilateral pulmonary fibrosis particularly on the left. Reactive mediastinal adenopathy. Nonobstructing left renal stone. Chronic cholelithiasis. Chronic nodule in the right lung. Stable right thyroid lobe nodule. Please note that all CT scans at this facility use dose modulation, iterative reconstruction, and/or weight-based dosing when appropriate to reduce radiation dose to as low as reasonably achievable. Dictated by Geovanny Brady MD @ 07/04/2025 11:32:08 AM (Electronically Signed)
== END 2025-07-04 10:47 | disposition home or self-care (01) ==
LOC: CT 10:47
PROVIDERS: PCP Internal Medicine; Visit Provider Internal Medicine
DX: J84.10 Pulmonary fibrosis, unspecified (principal); N20.0 Calculus of kidney; K80.20 Calculus of gallbladder without cholecystitis without obstruction; R91.8 Other nonspecific abnormal finding of lung field; E04.1 Nontoxic single thyroid nodule
CPT/HCPCS: 71250